=== PATIENT | male | born 1955 | race Caucasian/White ===

== ENCOUNTER 2016-12-05 08:38 | Inpatient (IN) | payer OTHER ==
[~2016-12-05] VITALS: Ht 165.1 cm; Wt 123.1 kg
[~2016-12-05 08:38] MED LIST: ALBU0.084 IN; ALBUAER17 INH; ALPR0.5T7 PO; ASCO500T11 PO; ASPI81CH44 PO; ATOR10TA52 PO; BUPR-60 PO; CALC600T38 PO; CHOL20007 OR; CYAN100023 PO; FERR325T50 PO; FLUT50SP13; Gabapentin PO; IPRASOL39 IN; LEVO150T68 PO; MAGN400T5 OR; MULTTAB OR; OXYC10TA44 PO; PANT40TA2 PO; PRI50T GT; RANI150C11 PO; SERT-138 PO; SUCR1TAB PO; TAM04C PO; TIOTCAP INH; TIZA4CAP5 PO; TRAZADONE PO
[2016-12-05] MEDS ORDERED: SODIUM CHLORIDE 0.9% 1,000 ML IV ONE (09:22)
[2016-12-05 09:24] LABS: Basophils # (auto) 0 uL; Eosinophils # (auto) 0.1 uL; Eosinophils % (auto) 0.8 % (0.0-7.0); Hematocrit 34.4 % (41.0-53.0); Hemoglobin 11.6 g/dL (13.5-17.5); Lymphocytes # (auto) 0.9 uL; Mean Corpuscular Hemoglobin 29.7 pg (28.0-32.0); Mean Corpuscular Hgb Conc. 33.7 g/dL (32.0-36.0); Mean Corpuscular Volume 88.1 fL (80.0-100.0); Mean Platelet Volume 8.1 fL (7.4-10.4); Monocytes # (auto) 0.2 uL; Monocytes % (auto) 1.9 % (0.0-12.0); Neutrophils # (auto) 11.1 uL; Neutrophils % (auto) 90.3 % (37.0-80.0); Platelet Count (auto) 227 10^3/uL (140-450); Red Cell Distribution Width 13.7 % (11.6-16.0); White Blood Cell 12.3 10^3/uL (4.4-10.8)
[2016-12-05] MEDS ORDERED: MORPHINE SULFATE 4 MG/ML SYRG IV ONE (09:30)
[2016-12-05 09:45] LABS: Lactic Acid w/Reflex 3.3 mmol/L (0.4-2.0)
[2016-12-05 09:47] LABS: Albumin 3.2 g/dL (3.4-5.0); Alkaline Phosphatase 63 U/L (45-117); Anion Gap 7 (5-15); Aspartate Aminotransferase 48 U/L (15-37); BUN/Creatinine Ratio 16.9; Bilirubin, Total 0.4 mg/dL (0.2-1.0); Blood Urea Nitrogen 15 mg/dL (7-18); Calcium 8.5 mg/dL (8.5-10.1); Carbon Dioxide 30 mmol/L (21-32); Chloride 104 mmol/L (98-107); GFR African American 111 mL/min; GFR Non-African American 92 mL/min; Glucose 100 mg/dL (74-106); Magnesium 1.9 mg/dL (1.6-2.6); Sodium 141 mmol/L (136-145); Total Protein 7.7 g/dL (6.4-8.2)
[2016-12-05 10:19] LABS: REFLEX LACTIC ACID YES OR NO YES
[2016-12-05 10:22] LABS: Urine RBC None Seen /hpf (0 - 3)
[2016-12-05 10:52] LABS: Urine Bilirubin Negative (Negative); Urine Blood Negative /uL (Negative); Urine Color Yellow (Yellow); Urine Glucose Normal (Normal); Urine Ketone Negative (Negative); Urine Nitrite Negative (Negative); Urine Squamous Epithelial Cell FEW /hpf (<5); Urine Urobilinogen Normal (Negative)
[2016-12-05] MEDS ORDERED: ACETAMINOPHEN 325 MG TAB PO ONE ×2 (11:34→11:45)
[2016-12-05] MEDS ORDERED: PIPERACILLIN-TAZOB 3.375GM 100 ML IV ONE ×2 (11:45→12:00)
[2016-12-05] MEDS ORDERED: SODIUM CHLORIDE 0.9% 1,000 ML IV SCH (11:56)
[2016-12-05 11:58] LABS: Lactic Acid w/Reflex 2.2 mmol/L (0.4-2.0); REFLEX LACTIC ACID YES OR NO NO
[2016-12-05] MEDS ORDERED: SODIUM BICARBONATE 8.4 % INJ 50ML VIAL IV ONE (12:00)
[2016-12-05] MEDS ORDERED: TEMAZEPAM 15 MG CAP PO PRN (12:00)
[2016-12-05] MEDS ORDERED: PROMETHAZINE HCL 25 MG/ML 1ML IV PRN (12:00)
[2016-12-05] MEDS ORDERED: ALBUTEROL SULF 2.5 MG/0.5ML(0.5%) NEB SOLN NEB ONE (12:00)
[2016-12-05] MEDS ORDERED: methylPREDNISolone SOD SUCC 40 MG/ML VL IV SCH (12:00)
[2016-12-05] MEDS ORDERED: FERROUS SULFATE 325 MG PO SCH (12:00)
[2016-12-05] MEDS ORDERED: MORPHINE SULF INJ 2 MG/ML SYRINGE 1ML IV PRN (12:00)
[2016-12-05] MEDS ORDERED: HYDROcodone-ACET 5/325MG TAB PO PRN (12:00)
[2016-12-05] MEDS ORDERED: VANCOMYCIN PER PHARMACY 0 MG IV SCH (12:00)
[2016-12-05] MEDS ORDERED: LORazepam 0.5 MG TAB PO PRN (12:00)
[2016-12-05] MEDS ORDERED: CALCIUM CHL 100MG/ML 1,000 MG in D5W 5% 100 ML IV ONE (12:00)
[2016-12-05] MEDS ORDERED: NITROGLYCERIN 0.4 MG SL TAB SL PRN (12:00)
[2016-12-05] MEDS ORDERED: FUROSEMIDE 40 MG/4 ML VIAL IV ONE (12:00)
[2016-12-05] MEDS ORDERED: ALBUTEROL SULF 2.5 MG/0.5ML(0.5%) NEB SOLN NEB PRN (12:00)
[2016-12-05] MEDS ORDERED: LACTULOSE 20Gm/30ML SOLN PO PRN (12:00)
[2016-12-05] MEDS ORDERED: ACETAMINOPHEN 500 MG TAB PO PRN (12:00)
[2016-12-05] MEDS ORDERED: ALPRAZolam 0.5 MG TAB PO PRN (12:00)
[2016-12-05] MEDS ORDERED: OSELTAMIVIR 75 MG CAP PO ONE (12:00)
[2016-12-05] MEDS ORDERED: IPRATROPIUM BROM 0.5 MG/2.5ML INH SOL ONE (12:07)
[2016-12-05] MEDS ORDERED: SODIUM CHLORIDE 0.9% 500 ML IV ONE (12:15)
[2016-12-05] MEDS ORDERED: InsuLIN REG 1unit/0.01ml Soln (100units/ml) IV ONE (12:15)
[2016-12-05] MEDS ORDERED: DEXTROSE (50%) 50ML SYRG IV ONE ×2 (12:15→12:45)
[2016-12-05] MEDS ORDERED: FUROSEMIDE 20 MG/2 ML VIAL IV ONE (12:15)
[2016-12-05] MEDS ORDERED: SODIUM POLYSTYRENE SULF 15GM/60ML SUSP PO ONE (12:15)
[2016-12-05] MEDS ORDERED: AZITHROMYCIN 500MG/D5W 250ML 250 ML IV ONE (12:30)
[2016-12-05] MEDS ORDERED: DEXTROSE 50% SYRINGE 50 ML IV ONE (12:30)
[2016-12-05] MEDS: IPRATROPIUM BROM 0.5 MG/2.5ML INH SOL NEB SCH ×3 (12:32→23:22)
[2016-12-05] MEDS: ALBUTEROL SULF 2.5 MG/0.5ML(0.5%) NEB SOLN NEB SCH ×3 (12:32→23:23)
[2016-12-05] MEDS: ASPirin 81 mg TAB PO SCH (13:00)
[2016-12-05] MEDS: PANTOPRAZOLE 40 MG TAB PO SCH (13:26)
[2016-12-05] MEDS: SUCRALFATE 1 GM TAB PO SCH ×3 (13:49→21:13)
[2016-12-05] MEDS: CYANOCOBALAMIN 500 MCG TAB PO SCH (13:50)
[2016-12-05] MEDS: GABAPENTIN 300 MG CAP PO SCH ×2 (13:59→21:13)
[2016-12-05] MEDS: MORPHINE SULF INJ 2 MG/ML SYRINGE 1ML IV PRN ×2 (13:59→21:12)
[2016-12-05] MEDS ORDERED: VANCOMYCIN 1GM/250ML D5W 250 ML IV ONE (14:00)
[2016-12-05] MEDS ORDERED: TIZANIDINE HYDROCHLORIDE PO SCH (14:00)
[2016-12-05 14:15] VITALS: BP 108/55
[2016-12-05] MEDS: VANCOMYCIN 1,250 MG in D5W 5% 250 ML IV SCH (15:05)
[2016-12-05 15:23] VITALS: BP 108/55
[2016-12-05] MEDS: ENOXAPARIN SOD 40 MG/0.4 ML SYRINGE SC SCH (15:27)
[2016-12-05 17:00] VITALS: BP 114/51
[2016-12-05 17:40] LABS: BUN/Creatinine Ratio 11.3; Calcium 8.7 mg/dL (8.5-10.1)
[2016-12-05] MEDS ORDERED: TRAZODONE 200 MG PO SCH (18:00)
[2016-12-05] MEDS ORDERED: ASCORBIC ACID 500 MG TAB PO SCH (18:00)
[2016-12-05] MEDS ORDERED: CYANOCOBALAMIN PO SCH (18:00)
[2016-12-05] MEDS: FERROUS SULFATE 325 MG TAB PO SCH (18:20)
[2016-12-05] MEDS: PIPERACILLIN-TAZOB 3.375GM 100 ML IV SCH ×2 (18:20→23:30)
[2016-12-05] MEDS: TAMSULOSIN HYDROCHLORIDE 0.4 MG CAP PO SCH (18:21)
[2016-12-05] MEDS: traZODone HCL 50 MG TAB PO SCH (18:21)
[2016-12-05 20:30] VITALS: BP 124/72
[2016-12-05 21:10] VITALS: BP 124/72
[2016-12-05] MEDS: PRIMIDONE 50 MG TAB PO SCH (21:13)
[2016-12-05] MEDS: buPROPion HCL 75 MG TAB PO SCH (21:13)
[2016-12-05] MEDS: FAMOTIDINE 20 MG TAB PO SCH (21:14)
[2016-12-05] MEDS ORDERED: ATORVASTATIN 20 MG TAB PO SCH (22:00)
[2016-12-05] MEDS ORDERED: PATIENTS OWN MEDICATION (Ranitidine Hcl 1 CAP) PO SCH ×2 (22:00)
[2016-12-05] MEDS ORDERED: OSELTAMIVIR 75 MG CAP PO SCH (22:00)
[2016-12-06] VITALS (8 sets, daily range): BP systolic 112–137; BP diastolic 47–95
[2016-12-06] MEDS: MORPHINE SULF INJ 2 MG/ML SYRINGE 1ML IV PRN ×3 (02:02→10:45)
[2016-12-06] MEDS: VANCOMYCIN 1,250 MG in D5W 5% 250 ML IV SCH ×2 (03:25→15:37)
[2016-12-06] MEDS: PIPERACILLIN-TAZOB 3.375GM 100 ML IV SCH ×3 (06:11→18:00)
[2016-12-06 06:12] LABS: Basophils # (auto) 0 uL; Eosinophils # (auto) 0 uL; Eosinophils % (auto) 0.1 % (0.0-7.0); Hematocrit 30.8 % (41.0-53.0); Hemoglobin 10.3 g/dL (13.5-17.5); Lymphocytes # (auto) 1.1 uL; Lymphocytes % (auto) 7.8 % (10.0-50.0); Mean Corpuscular Hemoglobin 30.2 pg (28.0-32.0); Mean Corpuscular Hgb Conc. 33.6 g/dL (32.0-36.0); Mean Corpuscular Volume 89.8 fL (80.0-100.0); Mean Platelet Volume 8.7 fL (7.4-10.4); Monocytes # (auto) 0.3 uL; Monocytes % (auto) 2.2 % (0.0-12.0); Neutrophils # (auto) 13.2 uL; Neutrophils % (auto) 89.9 % (37.0-80.0); Platelet Count (auto) 210 10^3/uL (140-450); Red Cell Distribution Width 13.5 % (11.6-16.0); White Blood Cell 14.6 10^3/uL (4.4-10.8)
[2016-12-06] MEDS: GABAPENTIN 300 MG CAP PO SCH ×2 (06:12→14:03)
[2016-12-06] MEDS: SUCRALFATE 1 GM TAB PO SCH ×2 (06:12→12:53)
[2016-12-06 06:42] LABS: Albumin 2.9 g/dL (3.4-5.0); BUN/Creatinine Ratio 12.2; Bilirubin, Total 0.5 mg/dL (0.2-1.0); Calcium 8.7 mg/dL (8.5-10.1); Total Protein 6.9 g/dL (6.4-8.2)
[2016-12-06 06:53] LABS: Potassium 2.9 mmol/L (3.5-5.1)
[2016-12-06] MEDS: IPRATROPIUM BROM 0.5 MG/2.5ML INH SOL NEB SCH ×3 (07:15→17:48)
[2016-12-06] MEDS: ALBUTEROL SULF 2.5 MG/0.5ML(0.5%) NEB SOLN NEB SCH ×3 (07:15→17:48)
[2016-12-06] MEDS: FERROUS SULFATE 325 MG TAB PO SCH ×3 (08:22→18:00)
[2016-12-06] MEDS ORDERED: CALCIUM W/VIT D (600MG/400IU) TAB PO SCH (10:00)
[2016-12-06] MEDS: ASPirin 81 mg TAB PO SCH (10:00)
[2016-12-06] MEDS ORDERED: FLUTICASONE PROP NASAL SPR 0.05 % (50MCG) 16GM SCH (10:00)
[2016-12-06] MEDS ORDERED: LEVOTHYROXINE SODIUM 50 MCG TAB PO SCH (10:00)
[2016-12-06] MEDS ORDERED: LEVOTHYROXINE SODIUM 100 MCG TAB PO SCH (10:00)
[2016-12-06] MEDS ORDERED: MAGNESIUM OXIDE 400 MG TAB PO SCH (10:00)
[2016-12-06] MEDS ORDERED: CALCIUM 600 MG PO SCH (10:00)
[2016-12-06] MEDS ORDERED: CHOLECALCIFEROL (VITD3) 1,000 UNIT TAB PO SCH (10:00)
[2016-12-06] MEDS ORDERED: PATIENTS OWN MEDICATION (Levothyroxine Sodium (Synthroid) 1 TAB) PO SCH (10:00)
[2016-12-06] MEDS ORDERED: PATIENTS OWN MEDICATION (Magnesium Oxide 400 MG) OR SCH (10:00)
[2016-12-06] MEDS ORDERED: SERTRALINE HCL 50 MG TAB PO SCH (10:00)
[2016-12-06] MEDS ORDERED: AZITHROMYCIN 500MG/D5W 250ML 250 ML IV SCH (10:00)
[2016-12-06] MEDS: ENOXAPARIN SOD 40 MG/0.4 ML SYRINGE SC SCH (10:02)
[2016-12-06] MEDS: buPROPion HCL 75 MG TAB PO SCH (10:02)
[2016-12-06] MEDS: PRIMIDONE 50 MG TAB PO SCH (10:02)
[2016-12-06] MEDS: PANTOPRAZOLE 40 MG TAB PO SCH (10:03)
[2016-12-06] MEDS: FAMOTIDINE 20 MG TAB PO SCH (10:03)
[2016-12-06] MEDS: CYANOCOBALAMIN 500 MCG TAB PO SCH (10:04)
[2016-12-06] MEDS: TAMSULOSIN HYDROCHLORIDE 0.4 MG CAP PO SCH (18:00)
[2016-12-06] MEDS: traZODone HCL 50 MG TAB PO SCH (18:00)
[2016-12-06] MEDS ORDERED: BUDESONIDE (INHALATION) 0.5 MG/2 ML NEB NEB SCH (22:00)
== END 2016-12-06 19:02 | disposition short-term general hospital (02) | DRG 871 ==
LOC: EDBD 08:38 → ER 08:38 → TELE 08:39 → TELE-CENTR 14:38
PROVIDERS: ADMIT Internal Medicine; ATTEND Internal Medicine Geriatric Medicine
DX: A41.9 Sepsis, unspecified organism (principal); J18.9 Pneumonia, unspecified organism; J96.00 Acute respiratory failure, unspecified whether with hypoxia or hypercapnia; J44.1 Chronic obstructive pulmonary disease with (acute) exacerbation; J45.909 Unspecified asthma, uncomplicated; E87.5 Hyperkalemia; F41.9 Anxiety disorder, unspecified; E03.9 Hypothyroidism, unspecified; D63.8 Anemia in other chronic diseases classified elsewhere; K21.9 Gastro-esophageal reflux disease without esophagitis; M10.9 Gout, unspecified
CPT/HCPCS: 36415; 36600; 71010; 80048; 80053; 80061; 81001; 82805; 82962; 83605; 83735; 84443; 84484; 85025; 87040; 87081; 87400; 93005; 94640; 96374; 96375; J1815; J2543; J7060

== ENCOUNTER 2018-02-05 08:04 | Inpatient (IN) | payer OTHER ==
[~2018-02-05] VITALS: Ht 175.3 cm; Wt 92.6 kg
[~2018-02-05 08:04] MED LIST changes: +ASPI1CHW15 PO; -ASPI81CH44 PO; +TIZA4CAP PO; -TIZA4CAP5 PO
[2018-02-05] MEDS ORDERED: SODIUM CHLORIDE 0.9% 1,000 ML IV ONE (08:07)
[2018-02-05] MEDS ORDERED: methylPREDNISolone SOD SUCC 125 MG/2 ML VL IV ONE ×2 (08:15→08:30)
[2018-02-05 08:16] VITALS: BP 195/81
[2018-02-05] MEDS ORDERED: ACETAMINOPHEN 500 MG TAB PO ONE (09:00)
[2018-02-05] MEDS ORDERED: cefTRIAXone 1GM/10ml IVPUSH 10 ML IV ONE (09:00)
[2018-02-05 09:38] LABS: Basophils # (auto) 0 uL; Basophils % (auto) 0.3 % (0.0-2.0); Eosinophils # (auto) 0 uL; Eosinophils % (auto) 0.5 % (0.0-7.0); Hematocrit 34.9 % (41.0-53.0); Hemoglobin 11.7 g/dL (13.5-17.5); Lymphocytes # (auto) 0.4 uL; Lymphocytes % (auto) 11.7 % (10.0-50.0); Mean Corpuscular Hemoglobin 31.9 pg (28.0-32.0); Mean Corpuscular Hgb Conc. 33.6 g/dL (32.0-36.0); Mean Corpuscular Volume 94.9 fL (80.0-100.0); Monocytes # (auto) 0.2 uL; Monocytes % (auto) 5.9 % (0.0-12.0); Neutrophils # (auto) 2.7 uL; Neutrophils % (auto) 81.6 % (37.0-80.0); Nucleated Red Blood Cells % 0.1 %; Platelet Count (auto) 178 10^3/uL (140-450); Red Blood Cells 3.68 10^6/uL (4.5-5.90); Red Cell Distribution Width 13.9 % (11.8-14.3); White Blood Cell 3.4 10^3/uL (4.4-10.8)
[2018-02-05 09:58] LABS: Alanine Aminotransferase 30 U/L (16-61); Albumin 3.7 g/dL (3.4-5.0); Alkaline Phosphatase 55 U/L (45-117); Anion Gap 8 (5-15); Aspartate Aminotransferase 36 U/L (15-37); BUN/Creatinine Ratio 16.2; Bilirubin, Total 0.4 mg/dL (0.2-1.0); Blood Urea Nitrogen 17 mg/dL (7-18); Calcium 8.4 mg/dL (8.5-10.1); Carbon Dioxide 27 mmol/L (21-32); Chloride 106 mmol/L (98-107); GFR African American 91 mL/min; GFR Non-African American 76 mL/min; Glucose 130 mg/dL (74-106); Magnesium 2.4 mg/dL (1.6-2.6); Potassium 4.2 mmol/L (3.5-5.1); Sodium 141 mmol/L (136-145); Total Protein 7.4 g/dL (6.4-8.2)
[2018-02-05 11:14] LABS: Urine Bacteria NONE SEEN /hpf (None Seen); Urine Blood Negative /uL (Negative); Urine WBC 1 /hpf (0 - 3)
[2018-02-05] MEDS ORDERED: MORPHINE SULFATE 8mg/ml INJ SDV IV ONE (13:45)
[2018-02-05] MEDS ORDERED: ONDANSETRON HCL 4 MG/2 ML VIAL IV ONE (14:00)
[2018-02-05] MEDS: SODIUM CHLORIDE 0.9% 1,000 ML IV SCH (15:17)
[2018-02-05] MEDS ORDERED: LACTULOSE 20Gm/30ML SOLN PO PRN (15:30)
[2018-02-05] MEDS ORDERED: LORazepam 0.5 MG TAB PO PRN (15:30)
[2018-02-05] MEDS ORDERED: TEMAZEPAM 15 MG CAP PO PRN (15:30)
[2018-02-05] MEDS ORDERED: HYDROcodone-ACET 5/325MG TAB PO PRN (15:30)
[2018-02-05] MEDS ORDERED: ALPRAZolam 0.5 MG TAB PO PRN (15:30)
[2018-02-05] MEDS ORDERED: NITROGLYCERIN 0.4 MG SL TAB SL PRN (15:30)
[2018-02-05] MEDS ORDERED: MORPHINE SULFATE 10 MG/ML INJ 1ML SDV IV PRN (15:30)
[2018-02-05] MEDS ORDERED: ALBUTEROL SULF 2.5 MG/0.5ML(0.5%) NEB SOLN NEB PRN (15:30)
[2018-02-05] MEDS ORDERED: ACETAMINOPHEN 500 MG TAB PO PRN (15:30)
[2018-02-05] MEDS ORDERED: DEXTROSE (50%) 50ML SYRG IV PRN (15:30)
[2018-02-05 15:38] VITALS: BP 162/77
[2018-02-05] MEDS ORDERED: PANTOPRAZOLE 40 MG/10 ML VIAL IV ONE (15:45)
[2018-02-05 16:25] LABS: Amylase 36 U/L (25-115); Lipase 76 U/L (73-393)
[2018-02-05] MEDS ORDERED: OXYCODONE W/ ACETAMINOPHEN 5/325MG TABLET PO PRN (16:30)
[2018-02-05] MEDS: InsuLIN REG 1unit/0.01ml Soln (100units/ml) SC SCH ×2 (17:00→22:43)
[2018-02-05] MEDS: CALCIUM W/VIT D (600MG/400IU) TAB PO SCH (17:15)
[2018-02-05] MEDS: SUCRALFATE 1 GM TAB PO SCH ×2 (17:15→22:41)
[2018-02-05] MEDS: ACCU-CHEK COMFORT CURVE STRIP VI SCH ×2 (17:21→22:29)
[2018-02-05] MEDS ORDERED: CYANOCOBALAMIN 500 MCG TAB PO SCH (18:00)
[2018-02-05] MEDS ORDERED: methylPREDNISolone SOD SUCC 40 MG/ML VL IV SCH (18:00)
[2018-02-05] MEDS: ASCORBIC ACID 500 MG TAB PO SCH (18:12)
[2018-02-05] MEDS: FERROUS SULFATE 325 MG TAB PO SCH (18:13)
[2018-02-05] MEDS: CYANOCOBALAMIN 500 MCG TAB PO SCH (18:24)
[2018-02-05] MEDS: IPRATROPIUM BROM 0.5 MG/2.5ML INH SOL NEB SCH (18:51)
[2018-02-05] MEDS: ALBUTEROL SULF 2.5 MG/0.5ML(0.5%) NEB SOLN NEB SCH (18:51)
[2018-02-05 21:05] LABS: Hematocrit 35.1 % (41.0-53.0); Hemoglobin 11.7 g/dL (13.5-17.5)
[2018-02-05] MEDS ORDERED: PATIENTS OWN MEDICATION (Ranitidine Hcl 1 CAP) PO SCH (22:00)
[2018-02-05] MEDS: TIZANIDINE 4 MG PO SCH (22:00)
[2018-02-05] MEDS: TAMSULOSIN HYDROCHLORIDE 0.4 MG CAP PO SCH (22:41)
[2018-02-05] MEDS: buPROPion HCL 75 MG TAB PO SCH (22:41)
[2018-02-05] MEDS: GABAPENTIN 300 MG CAP PO SCH (22:41)
[2018-02-05] MEDS: ATORVASTATIN 20 MG TAB PO SCH (22:41)
[2018-02-05] MEDS: traZODone HCL 50 MG TAB PO SCH (22:41)
[2018-02-05] MEDS: MORPHINE SULFATE 10 MG/ML INJ 1ML SDV IV PRN (22:42)
[2018-02-05] MEDS: PROMETHAZINE HCL 25 MG/ML 1ML IV PRN (22:43)
[2018-02-05] MEDS: PANTOPRAZOLE 40 MG/10 ML VIAL IV SCH (23:58)
[2018-02-05] MEDS: CLINDAMYCIN 600MG IV 50 ML IV SCH (23:58)
[2018-02-05] MEDS: PRIMIDONE 50 MG TAB PO SCH (23:59)
[2018-02-05] MEDS: methylPREDNISolone SOD SUCC 40 MG/ML VL IV SCH (23:59)
[2018-02-06] MEDS: ALBUTEROL SULF 2.5 MG/0.5ML(0.5%) NEB SOLN NEB SCH ×4 (00:48→19:53)
[2018-02-06] MEDS: IPRATROPIUM BROM 0.5 MG/2.5ML INH SOL NEB SCH ×4 (00:48→19:53)
[2018-02-06 01:01] LABS: Hematocrit 34.1 % (41.0-53.0); Hemoglobin 11.6 g/dL (13.5-17.5)
[2018-02-06] MEDS: MORPHINE SULFATE 10 MG/ML INJ 1ML SDV IV PRN ×4 (03:42→20:56)
[2018-02-06] MEDS: PROMETHAZINE HCL 25 MG/ML 1ML IV PRN ×3 (03:42→20:57)
[2018-02-06] MEDS: SODIUM CHLORIDE 0.9% 1,000 ML IV SCH ×2 (05:49→17:35)
[2018-02-06] MEDS: TIZANIDINE 4 MG PO SCH ×3 (06:00→22:00)
[2018-02-06] MEDS: GABAPENTIN 300 MG CAP PO SCH ×3 (06:22→22:49)
[2018-02-06] MEDS: CLINDAMYCIN 600MG IV 50 ML IV SCH ×3 (06:22→22:38)
[2018-02-06] MEDS: InsuLIN REG 1unit/0.01ml Soln (100units/ml) SC SCH ×4 (07:00→22:00)
[2018-02-06] MEDS: ACCU-CHEK COMFORT CURVE STRIP VI SCH ×3 (07:00→16:27)
[2018-02-06 07:07] LABS: Basophils # (auto) 0 uL; Basophils % (auto) 0.1 % (0.0-2.0); Eosinophils # (auto) 0 uL; Eosinophils % (auto) 0.1 % (0.0-7.0); Hemoglobin 10.9 g/dL (13.5-17.5); Lymphocytes # (auto) 0.9 uL; Lymphocytes % (auto) 14.3 % (10.0-50.0); Mean Corpuscular Hemoglobin 32.3 pg (28.0-32.0); Monocytes # (auto) 0.4 uL; Monocytes % (auto) 6.4 % (0.0-12.0); Neutrophils # (auto) 5.1 uL; Neutrophils % (auto) 79.1 % (37.0-80.0); Platelet Count (auto) 166 10^3/uL (140-450); Red Blood Cells 3.37 10^6/uL (4.5-5.90); Red Cell Distribution Width 13.9 % (11.8-14.3); White Blood Cell 6.4 10^3/uL (4.4-10.8)
[2018-02-06 07:26] LABS: Cholesterol 109 mg/dL (< 200); HDL Cholesterol 58 mg/dL (40-59); LDL Cholesterol 36 mg/dL (< 100); Triglycerides 103 mg/dL (< 150)
[2018-02-06] MEDS: FERROUS SULFATE 325 MG TAB PO SCH ×3 (07:42→17:45)
[2018-02-06] MEDS: LEVOTHYROXINE SODIUM 50 MCG TAB PO SCH (07:42)
[2018-02-06] MEDS: SUCRALFATE 1 GM TAB PO SCH ×4 (07:42→22:50)
[2018-02-06 09:20] VITALS: BP 140/60
[2018-02-06 10:00] VITALS: BP 140/60
[2018-02-06] MEDS ORDERED: ENOXAPARIN SOD 40 MG/0.4 ML SYRINGE SC SCH (10:00)
[2018-02-06] MEDS ORDERED: PANTOPRAZOLE 40 MG TAB PO SCH ×2 (10:00)
[2018-02-06] MEDS: LEVOFLOXACIN 500MG 100 ML IV SCH (10:59)
[2018-02-06] MEDS: PANTOPRAZOLE 40 MG/10 ML VIAL IV SCH ×2 (11:00→22:47)
[2018-02-06] MEDS: methylPREDNISolone SOD SUCC 40 MG/ML VL IV SCH ×2 (11:00→22:47)
[2018-02-06] MEDS: buPROPion HCL 75 MG TAB PO SCH ×2 (11:02→22:50)
[2018-02-06] MEDS: SERTRALINE HCL 50 MG TAB PO SCH (11:02)
[2018-02-06] MEDS: CALCIUM W/VIT D (600MG/400IU) TAB PO SCH (11:02)
[2018-02-06] MEDS: ASPirin 81 mg TAB PO SCH (11:02)
[2018-02-06] MEDS: CHOLECALCIFEROL (VITD3) 1,000 UNIT TAB PO SCH (11:03)
[2018-02-06] MEDS: MAGNESIUM OXIDE 400 MG TAB PO SCH (11:03)
[2018-02-06] MEDS: PRIMIDONE 50 MG TAB PO SCH ×2 (11:23→22:51)
[2018-02-06] MEDS: FLUTICASONE PROP NASAL SPR 0.05 % (50MCG) 16GM SCH ×2 (11:23→22:52)
[2018-02-06 13:00] VITALS: BP 155/71
[2018-02-06 17:00] VITALS: BP 141/71
[2018-02-06] MEDS: CYANOCOBALAMIN 500 MCG TAB PO SCH (17:45)
[2018-02-06] MEDS: ASCORBIC ACID 500 MG TAB PO SCH (17:45)
[2018-02-06 22:00] VITALS: BP 155/70
[2018-02-06] MEDS: ATORVASTATIN 20 MG TAB PO SCH (22:49)
[2018-02-06] MEDS: TAMSULOSIN HYDROCHLORIDE 0.4 MG CAP PO SCH (22:49)
[2018-02-06] MEDS: traZODone HCL 50 MG TAB PO SCH (22:52)
[2018-02-07] MEDS: ALBUTEROL SULF 2.5 MG/0.5ML(0.5%) NEB SOLN NEB SCH ×2 (01:08→06:32)
[2018-02-07] MEDS: IPRATROPIUM BROM 0.5 MG/2.5ML INH SOL NEB SCH ×2 (01:08→06:32)
[2018-02-07] MEDS: MORPHINE SULFATE 10 MG/ML INJ 1ML SDV IV PRN ×4 (01:14→14:39)
[2018-02-07] MEDS: PROMETHAZINE HCL 25 MG/ML 1ML IV PRN ×2 (01:14→06:01)
[2018-02-07] MEDS: TIZANIDINE 4 MG PO SCH ×2 (03:26→14:00)
[2018-02-07] MEDS: ACCU-CHEK COMFORT CURVE STRIP VI SCH ×3 (03:29→11:17)
[2018-02-07 05:00] VITALS: BP 154/76
[2018-02-07] MEDS: CLINDAMYCIN 600MG IV 50 ML IV SCH ×2 (06:01→14:06)
[2018-02-07] MEDS: SUCRALFATE 1 GM TAB PO SCH ×2 (06:02→11:17)
[2018-02-07] MEDS: GABAPENTIN 300 MG CAP PO SCH ×2 (06:02→14:06)
[2018-02-07] MEDS: LEVOTHYROXINE SODIUM 50 MCG TAB PO SCH (06:03)
[2018-02-07 06:08] LABS: Basophils # (auto) 0 uL; Basophils % (auto) 0.1 % (0.0-2.0); Eosinophils # (auto) 0 uL; Eosinophils % (auto) 0.2 % (0.0-7.0); Hematocrit 30.6 % (41.0-53.0); Hemoglobin 10.6 g/dL (13.5-17.5); Lymphocytes % (auto) 16.5 % (10.0-50.0); Mean Corpuscular Hemoglobin 32.4 pg (28.0-32.0); Mean Corpuscular Hgb Conc. 34.5 g/dL (32.0-36.0); Mean Corpuscular Volume 93.7 fL (80.0-100.0); Monocytes # (auto) 0.4 uL; Monocytes % (auto) 6.7 % (0.0-12.0); Neutrophils # (auto) 4.6 uL; Neutrophils % (auto) 76.5 % (37.0-80.0); Platelet Count (auto) 181 10^3/uL (140-450); Red Blood Cells 3.26 10^6/uL (4.5-5.90); Red Cell Distribution Width 13.8 % (11.8-14.3)
[2018-02-07 06:18] LABS: INR 1.18 (0.9-1.15); Partial Thromboplastin Time 38.2 sec (23.78-33.04); Prothrombin Time 12.5 sec (9.27-12.13)
[2018-02-07 06:20] LABS: BUN/Creatinine Ratio 13.9; Calcium 8.7 mg/dL (8.5-10.1); Magnesium 2.3 mg/dL (1.6-2.6); Potassium 3.9 mmol/L (3.5-5.1)
[2018-02-07] MEDS: InsuLIN REG 1unit/0.01ml Soln (100units/ml) SC SCH ×2 (07:00→11:30)
[2018-02-07] MEDS: SODIUM CHLORIDE 0.9% 1,000 ML IV SCH (07:13)
[2018-02-07] MEDS: FERROUS SULFATE 325 MG TAB PO SCH ×2 (07:49→11:16)
[2018-02-07 08:00] VITALS: BP 145/71
[2018-02-07] MEDS: ASPirin 81 mg TAB PO SCH (10:00)
[2018-02-07] MEDS: LEVOFLOXACIN 500MG 100 ML IV SCH (10:29)
[2018-02-07] MEDS: methylPREDNISolone SOD SUCC 40 MG/ML VL IV SCH (10:29)
[2018-02-07] MEDS: PANTOPRAZOLE 40 MG/10 ML VIAL IV SCH (10:29)
[2018-02-07] MEDS: CHOLECALCIFEROL (VITD3) 1,000 UNIT TAB PO SCH (10:30)
[2018-02-07] MEDS: SERTRALINE HCL 50 MG TAB PO SCH (10:30)
[2018-02-07] MEDS: CALCIUM W/VIT D (600MG/400IU) TAB PO SCH (10:30)
[2018-02-07] MEDS: MAGNESIUM OXIDE 400 MG TAB PO SCH (10:30)
[2018-02-07] MEDS: buPROPion HCL 75 MG TAB PO SCH (10:31)
[2018-02-07] MEDS: PRIMIDONE 50 MG TAB PO SCH (10:32)
[2018-02-07 12:00] VITALS: BP 137/63
[2018-02-07] MEDS ORDERED: ACETYLCYSTEINE 10 %(100MG/ML) SOL 4ML NEB SCH (12:00)
[2018-02-07] MEDS ORDERED: BUDESONIDE (INHALATION) 0.5 MG/2 ML NEB NEB SCH (12:00)
== END 2018-02-07 16:35 | disposition home or self-care (01) | DRG 871 ==
LOC: EDBD 08:04 → ER 08:04 → TELE 08:05 → EAST 02-06 09:16
PROVIDERS: ADMIT Internal Medicine; ATTEND Internal Medicine Geriatric Medicine
PROC: 5A09357 Assistance with Respiratory Ventilation, Less than 24 Consecutive Hours, Continuous Positive Airway Pressure (ICD-10-PCS; principal; 2018-02-05)
DX: A41.9 Sepsis, unspecified organism (principal); J18.1 Lobar pneumonia, unspecified organism; J96.10 Chronic respiratory failure, unspecified whether with hypoxia or hypercapnia; I11.0 Hypertensive heart disease with heart failure; K27.4 Chronic or unspecified peptic ulcer, site unspecified, with hemorrhage; I50.30 Unspecified diastolic (congestive) heart failure; J44.0 Chronic obstructive pulmonary disease with (acute) lower respiratory infection; J44.1 Chronic obstructive pulmonary disease with (acute) exacerbation; E03.9 Hypothyroidism, unspecified; F32.9 Major depressive disorder, single episode, unspecified; F41.9 Anxiety disorder, unspecified; K21.9 Gastro-esophageal reflux disease without esophagitis; M10.9 Gout, unspecified; N40.0 Benign prostatic hyperplasia without lower urinary tract symptoms; E66.9 Obesity, unspecified; Z80.8 Family history of malignant neoplasm of other organs or systems; Z83.3 Family history of diabetes mellitus; Z87.11 Personal history of peptic ulcer disease; Z90.49 Acquired absence of other specified parts of digestive tract; Z68.30 Body mass index [BMI] 30.0-30.9, adult
CPT/HCPCS: 36415; 36600; 71045; 80048; 80053; 80061; 81001; 82150; 82805; 82962; 83036; 83690; 83735; 83880; 84443; 84484; 85014; 85018; 85025; 85045; 85610; 85730; 86850; 86870; 86900; 86901; 87040; 87070; 87081; 87205; 93005; 94640; 94660; 96361; 96374; 96375; C9113; J1815; J1956; J2270; J2405; J3490

== ENCOUNTER 2021-12-26 23:44 | Inpatient (IN) | payer OTHER ==
[~2021-12-26] VITALS: Ht 172.7 cm; Wt 65.5 kg
[~2021-12-26 23:44] MED LIST changes: +CALC600T16 PO; -CALC600T38 PO; +LEV150T PO; -LEVO150T68 PO; +MAGN400T40 OR; -MAGN400T5 OR; +MULT-733 OR; -MULTTAB OR; -PRI50T GT; +PRIM50TA5 GT; -SERT-138 PO; +SERT50TA PO
[2021-12-26 23:51] VITALS: BP 202/97
[2021-12-27] VITALS (8 sets, daily range): BP systolic 81–152; BP diastolic 52–74
[2021-12-27] MEDS ORDERED: ALBUTEROL SULF 2.5 MG/0.5ML(0.5%) NEB SOLN HHN ONE
[2021-12-27] MEDS ORDERED: DexAMETHasone SOD PHOS 10MG/1ML VIAL INJ IM ONE
[2021-12-27] MEDS ORDERED: IPRATROPIUM BROM 0.5 MG/2.5ML INH SOL HHN ONE
[2021-12-27] MEDS ORDERED: AZITHROMYCIN 500MG/ 250ML 250 ML IV ONE
[2021-12-27] MEDS ORDERED: LABETALOL HCL 5 MG/ML 4ML SYRINGE IV ONE (00:30)
[2021-12-27 01:11] LABS: Eosinophils # (auto) 0 10 ^3/uL (0-0.8); Hemoglobin 10.5 g/dL (13.5-17.5)
[2021-12-27 01:13] LABS: Basophils # (auto) 0 10 ^3/uL (0-0.2); Basophils % (auto) 0.5 % (0.0-2.0); Eosinophils % (auto) 0.6 % (0.0-7.0); Hematocrit 30.5 % (41.0-53.0); Lymphocytes # (auto) 1.4 10 ^3/uL (0.4-5.4); Lymphocytes % (auto) 17.9 % (10.0-50.0); Mean Corpuscular Hemoglobin 34.9 pg (28.0-32.0); Mean Corpuscular Hgb Conc. 34.3 g/dL (32.0-36.0); Mean Corpuscular Volume 101.8 fL (80.0-100.0); Monocytes # (auto) 0.3 10 ^3/uL (0-1.3); Monocytes % (auto) 4.4 % (0.0-12.0); Neutrophils % (auto) 76.6 % (37.0-80.0); Red Cell Distribution Width 19.7 % (11.8-14.3); White Blood Cell 7.8 10^3/uL (4.4-10.8)
[2021-12-27] MEDS ORDERED: SODIUM CHLORIDE 0.9% 1,000 ML IV ONE (01:15)
[2021-12-27 01:23] LABS: Lactic Acid w/Reflex 2.4 mmol/L (0.4-2.0)
[2021-12-27 01:29] LABS: Albumin 3.7 g/dL (3.4-5.0); BUN/Creatinine Ratio 10.8; Calcium 9.2 mg/dL (8.5-10.1); Potassium 4.8 mmol/L (3.5-5.1)
[2021-12-27 01:32] LABS: Bilirubin, Total 0.6 mg/dL (0.2-1.0)
[2021-12-27] MEDS ORDERED: VANCOMYCIN 1GM/250ML 250 ML IV ONE (03:15)
[2021-12-27] MEDS ORDERED: IOHEXOL 350 MG/ML 100ML IJ ONE (03:35)
[2021-12-27] MEDS ORDERED: ALBUTEROL SULF 2.5 MG/0.5ML(0.5%) NEB SOLN NEB ONE (04:15)
[2021-12-27] MEDS ORDERED: IPRATROPIUM BROM 0.5 MG/2.5ML INH SOL NEB ONE (04:15)
[2021-12-27] MEDS ORDERED: ASPirin 81 mg TAB PO ONE (06:00)
[2021-12-27] MEDS ORDERED: HEPARIN DRIP/D5W 100UNITS/ML 250 ML IV SCH ×3 (06:00→15:15)
[2021-12-27] MEDS ORDERED: CLOPIDOGREL 300 MG TAB PO ONE (06:00)
[2021-12-27] MEDS: ALBUTEROL SULF 2.5 MG/0.5ML(0.5%) NEB SOLN NEB SCH ×2 (06:22→13:10)
[2021-12-27] MEDS: IPRATROPIUM BROM 0.5 MG/2.5ML INH SOL NEB SCH ×4 (06:22→21:07)
[2021-12-27] MEDS ORDERED: HEPARIN SODIUM (PORCINE) 5000 UNITS/ML 1ML VIAL IV ONE ×2 (06:30)
[2021-12-27 07:54] LABS: INR 1.13 (0.9-1.15); Partial Thromboplastin Time 33.3 sec (23.6-33.0)
[2021-12-27] MEDS ORDERED: MORPHINE SULFATE INJECTION 2 MG/ML SYRG IV PRN (10:45)
[2021-12-27] MEDS ORDERED: NITROGLYCERIN 0.4 MG SL TAB SL PRN (10:45)
[2021-12-27] MEDS ORDERED: hydrALAZINE HCL 20 MG/ML VL IV PRN (14:45)
[2021-12-27] MEDS ORDERED: methylPREDNISolone SOD SUCC 125 MG/2 ML VL IV ONE (14:45)
[2021-12-27] MEDS ORDERED: DOCUSATE SOD 100 MG CAP PO PRN (14:45)
[2021-12-27] MEDS ORDERED: ACETAMINOPHEN 325 MG TAB PO PRN (14:45)
[2021-12-27] MEDS ORDERED: levoFLOXacin 750MG 150 ML IV ONE (14:45)
[2021-12-27] MEDS ORDERED: ONDANSETRON HCL 4 MG/2 ML VIAL IV PRN (14:45)
[2021-12-27 15:31] LABS: Magnesium 1.9 mg/dL (1.6-2.6); Phosphorus 3.3 mg/dL (2.5-4.90)
[2021-12-27 15:49] LABS: INR 1.17 (0.9-1.15)
[2021-12-27] MEDS: MORPHINE SULFATE INJECTION 2 MG/ML SYRG IV PRN ×2 (16:28→22:46)
[2021-12-27] MEDS: FUROSEMIDE 20 MG/2 ML VIAL IV SCH (18:20)
[2021-12-27] MEDS: HYDROcodone-ACET 5/325MG TAB PO PRN (18:30)
[2021-12-27] MEDS: BUDESONIDE (INHALATION) 0.5 MG/2 ML NEB NEB SCH ×2 (18:54→21:07)
[2021-12-27] MEDS: ALBUTEROL SULF 2.5 MG/0.5ML(0.5%) NEB SOLN NEB PRN ×2 (18:54→21:07)
[2021-12-27] MEDS: ACETYLCYSTEINE 10 %(100MG/ML) SOL 4ML NEB SCH (21:07)
[2021-12-27] MEDS: TAMSULOSIN HYDROCHLORIDE 0.4 MG CAP PO SCH (21:37)
[2021-12-27] MEDS: methylPREDNISolone SOD SUCC 40 MG/ML VL IV SCH (21:37)
[2021-12-27] MEDS: ISOSORBIDE MONONITRATE 20 MG TAB PO SCH (21:38)
[2021-12-27] MEDS: POTASSIUM EFFERVESENT TAB 25 MEQ PO SCH (21:39)
[2021-12-27] MEDS: ATORVASTATIN 20 MG TAB PO SCH (21:39)
[2021-12-27] MEDS: PRIMIDONE 50 MG TAB PO SCH (21:39)
[2021-12-27] MEDS ORDERED: POTASSIUM CHL 20 Meq TABLET PO SCH (22:00)
[2021-12-27] MEDS: ALPRAZolam 0.5 MG TAB PO SCH (22:42)
[2021-12-28] MEDS: ALBUTEROL SULF 2.5 MG/0.5ML(0.5%) NEB SOLN NEB PRN ×6 (02:02→23:16)
[2021-12-28] MEDS: IPRATROPIUM BROM 0.5 MG/2.5ML INH SOL NEB SCH ×6 (02:02→22:44)
[2021-12-28] MEDS: HYDROcodone-ACET 5/325MG TAB PO PRN ×2 (02:20→07:59)
[2021-12-28 05:00] VITALS: BP 99/49
[2021-12-28] MEDS: MORPHINE SULFATE INJECTION 2 MG/ML SYRG IV PRN ×2 (05:03→11:09)
[2021-12-28 05:18] LABS: Basophils # (auto) 0 10 ^3/uL (0-0.2); Basophils % (auto) 0.1 % (0.0-2.0); Eosinophils # (auto) 0 10 ^3/uL (0-0.8); Eosinophils % (auto) 0.1 % (0.0-7.0); Hematocrit 24.7 % (41.0-53.0); Hemoglobin 8.9 g/dL (13.5-17.5); Lymphocytes # (auto) 0.2 10 ^3/uL (0.4-5.4); Lymphocytes % (auto) 3.8 % (10.0-50.0); Mean Corpuscular Hemoglobin 35.5 pg (28.0-32.0); Mean Corpuscular Hgb Conc. 35.8 g/dL (32.0-36.0); Monocytes # (auto) 0.2 10 ^3/uL (0-1.3); Neutrophils # (auto) 4.9 10 ^3/uL (1.6-8.6); Nucleated Red Blood Cells % 0.1 %; White Blood Cell 5.3 10^3/uL (4.4-10.8)
[2021-12-28 05:28] LABS: Chloride 101 mmol/L (98-107); Magnesium 1.6 mg/dL (1.6-2.6); Sodium 135 mmol/L (136-145)
[2021-12-28 05:39] LABS: Thyroid Stimulating Hormone 1.44 uIU/mL (0.358-3.74)
[2021-12-28 05:40] LABS: Alanine Aminotransferase 21 U/L (16-61); Albumin 2.7 g/dL (3.4-5.0); Alkaline Phosphatase 48 U/L (45-117); Anion Gap 4 (5-15); Aspartate Aminotransferase 24 U/L (15-37); Bilirubin, Total 0.4 mg/dL (0.2-1.0); Blood Urea Nitrogen 9 mg/dL (7-18); Calcium 9.1 mg/dL (8.5-10.1); Carbon Dioxide 30 mmol/L (21-32); Cholesterol 104 mg/dL (< 200); Creatine Kinase IFCC 57 U/L (39-308); GFR African American 213 mL/min; GFR Non-African American 176 mL/min; Glucose 122 mg/dL (74-106); HDL Cholesterol 67 mg/dL (40-59); LDL Cholesterol 24 mg/dL (< 100); Lipase 34 U/L (73-393); Phosphorus 3.2 mg/dL (2.5-4.90); Total Protein 6.5 g/dL (6.4-8.2); Triglycerides 50 mg/dL (< 150); Uric Acid 3.7 mg/dL (3.5-7.2)
[2021-12-28] MEDS: FUROSEMIDE 20 MG/2 ML VIAL IV SCH ×2 (05:43→17:17)
[2021-12-28 05:46] LABS: CRP High Sensitivity > 19 mg/dL (< 0.3)
[2021-12-28] MEDS: methylPREDNISolone SOD SUCC 40 MG/ML VL IV SCH ×3 (05:49→22:26)
[2021-12-28] MEDS: LEVOTHYROXINE SODIUM 50 MCG TAB PO SCH (05:50)
[2021-12-28 07:09] LABS: Alcohol, Urine < 3.0 mg/dL (0-10); Amphetamine Screen, Urine NEGATIVE (NEGATIVE); Barbiturate Scree,Urine POSITIVE (NEGATIVE); Benzodiazephine Screen, Urine NEGATIVE (NEGATIVE); Cannabinoid Screen, Urine NEGATIVE (NEGATIVE); Cocaine Screen, Urine NEGATIVE (NEGATIVE); Phencyclidine Screen, Urine NEGATIVE (NEGATIVE); Protein, Urine 16.5 mg/dL (0.0-11.9); Urine Bacteria NONE SEEN /hpf (None Seen); Urine Blood Negative /uL (Negative); Urine Specific Gravity 1.015 (1.001-1.035); Urine WBC <1 /hpf (0 - 3)
[2021-12-28 07:11] LABS: Opiate Scree,Urine POSITIVE (NEGATIVE)
[2021-12-28] MEDS: BUDESONIDE (INHALATION) 0.5 MG/2 ML NEB NEB SCH ×2 (07:35→19:09)
[2021-12-28] MEDS: ACETYLCYSTEINE 10 %(100MG/ML) SOL 4ML NEB SCH ×3 (07:35→22:44)
[2021-12-28 09:39] VITALS: BP 124/64
[2021-12-28] MEDS: levoFLOXacin 750MG 150 ML IV SCH (09:51)
[2021-12-28] MEDS: POTASSIUM EFFERVESENT TAB 25 MEQ PO SCH ×2 (09:54→22:25)
[2021-12-28] MEDS: ISOSORBIDE MONONITRATE 20 MG TAB PO SCH ×2 (09:57→22:25)
[2021-12-28] MEDS: SERTRALINE HCL 50 MG TAB PO SCH (09:57)
[2021-12-28] MEDS: ASPirin 81 mg TAB PO SCH (09:57)
[2021-12-28] MEDS: ENOXAPARIN SOD 40 MG/0.4 ML SYRINGE SC SCH (09:58)
[2021-12-28] MEDS ORDERED: PANTOPRAZOLE 40 MG/10 ML VIAL INJ IV SCH (10:00)
[2021-12-28] MEDS: ALPRAZolam 0.5 MG TAB PO SCH ×2 (10:00→22:25)
[2021-12-28] MEDS: PRIMIDONE 50 MG TAB PO SCH ×2 (10:31→22:24)
[2021-12-28 12:43] VITALS: BP 101/56
[2021-12-28] MEDS: MORPHINE SULFATE 4 MG/ML SYR/VIAL IV PRN ×3 (13:22→21:15)
[2021-12-28] MEDS ORDERED: GASTROGRAFIN 120 ML SOL ONE (15:27)
[2021-12-28] MEDS ORDERED: EZ PAQUE SUSP 12OZ BTL ONE (15:31)
[2021-12-28 16:36] VITALS: BP 93/55
[2021-12-28] MEDS: SUCRALFATE 1 GM/10 ML ORAL SUSP PO SCH ×2 (17:17→22:24)
[2021-12-28 21:47] VITALS: BP 108/61
[2021-12-28] MEDS: ATORVASTATIN 20 MG TAB PO SCH (22:25)
[2021-12-28] MEDS: TAMSULOSIN HYDROCHLORIDE 0.4 MG CAP PO SCH (22:25)
[2021-12-28] MEDS: PANTOPRAZOLE 40 MG/10 ML VIAL INJ IV SCH (22:26)
[2021-12-29] MEDS: MORPHINE SULFATE 4 MG/ML SYR/VIAL IV PRN ×6 (01:36→21:52)
[2021-12-29] MEDS: IPRATROPIUM BROM 0.5 MG/2.5ML INH SOL NEB SCH ×6 (02:47→22:20)
[2021-12-29] MEDS: ALBUTEROL SULF 2.5 MG/0.5ML(0.5%) NEB SOLN NEB PRN ×6 (02:48→23:35)
[2021-12-29 05:00] VITALS: BP 133/67
[2021-12-29] MEDS: FUROSEMIDE 20 MG/2 ML VIAL IV SCH ×2 (05:33→17:40)
[2021-12-29] MEDS: LEVOTHYROXINE SODIUM 50 MCG TAB PO SCH (05:34)
[2021-12-29] MEDS: SUCRALFATE 1 GM/10 ML ORAL SUSP PO SCH ×4 (05:34→21:01)
[2021-12-29] MEDS: methylPREDNISolone SOD SUCC 40 MG/ML VL IV SCH ×3 (05:34→21:01)
[2021-12-29] MEDS: ACETYLCYSTEINE 10 %(100MG/ML) SOL 4ML NEB SCH ×2 (06:32→14:28)
[2021-12-29] MEDS: BUDESONIDE (INHALATION) 0.5 MG/2 ML NEB NEB SCH ×2 (06:32→18:07)
[2021-12-29 08:37] VITALS: BP 124/67
[2021-12-29] MEDS: PANTOPRAZOLE 40 MG/10 ML VIAL INJ IV SCH ×2 (09:36→21:01)
[2021-12-29] MEDS: ENOXAPARIN SOD 40 MG/0.4 ML SYRINGE SC SCH (09:37)
[2021-12-29] MEDS: POTASSIUM EFFERVESENT TAB 25 MEQ PO SCH ×2 (09:37→21:02)
[2021-12-29] MEDS: ISOSORBIDE MONONITRATE 20 MG TAB PO SCH ×2 (09:39→21:50)
[2021-12-29] MEDS: SERTRALINE HCL 50 MG TAB PO SCH (09:39)
[2021-12-29] MEDS: ALPRAZolam 0.5 MG TAB PO SCH ×2 (09:40→21:50)
[2021-12-29] MEDS: ASPirin 81 mg TAB PO SCH (09:40)
[2021-12-29] MEDS: levoFLOXacin 750MG 150 ML IV SCH (09:40)
[2021-12-29] MEDS: PRIMIDONE 50 MG TAB PO SCH ×2 (09:40→21:03)
[2021-12-29] MEDS ORDERED: PANTOPRAZOLE 40 MG/10 ML VIAL INJ IV SCH (10:00)
[2021-12-29 13:00] VITALS: BP 115/62
[2021-12-29 16:31] VITALS: BP 112/61
[2021-12-29 20:00] VITALS: BP 112/61
[2021-12-29] MEDS: TAMSULOSIN HYDROCHLORIDE 0.4 MG CAP PO SCH (21:02)
[2021-12-29] MEDS: ATORVASTATIN 20 MG TAB PO SCH (21:02)
[2021-12-29 22:33] VITALS: BP 103/82
[2021-12-30] MEDS: IPRATROPIUM BROM 0.5 MG/2.5ML INH SOL NEB SCH ×6 (03:11→22:22)
[2021-12-30] MEDS: ALBUTEROL SULF 2.5 MG/0.5ML(0.5%) NEB SOLN NEB PRN ×6 (03:27→22:22)
[2021-12-30] MEDS: MORPHINE SULFATE 4 MG/ML SYR/VIAL IV PRN ×5 (03:37→22:20)
[2021-12-30 04:59] VITALS: BP 105/59
[2021-12-30] MEDS: BUDESONIDE (INHALATION) 0.5 MG/2 ML NEB NEB SCH ×2 (06:11→18:30)
[2021-12-30] MEDS: FUROSEMIDE 20 MG/2 ML VIAL IV SCH ×2 (06:21→18:15)
[2021-12-30] MEDS: SUCRALFATE 1 GM/10 ML ORAL SUSP PO SCH ×4 (06:22→22:03)
[2021-12-30] MEDS: methylPREDNISolone SOD SUCC 40 MG/ML VL IV SCH ×3 (06:22→22:03)
[2021-12-30] MEDS: LEVOTHYROXINE SODIUM 50 MCG TAB PO SCH (06:22)
[2021-12-30 09:00] VITALS: BP 107/60
[2021-12-30] MEDS: POTASSIUM EFFERVESENT TAB 25 MEQ PO SCH ×2 (09:56→22:03)
[2021-12-30] MEDS: ENOXAPARIN SOD 40 MG/0.4 ML SYRINGE SC SCH (09:56)
[2021-12-30] MEDS: ALPRAZolam 0.5 MG TAB PO SCH ×2 (09:56→22:04)
[2021-12-30] MEDS: ISOSORBIDE MONONITRATE 20 MG TAB PO SCH ×2 (09:57→22:04)
[2021-12-30] MEDS: levoFLOXacin 750MG 150 ML IV SCH (09:58)
[2021-12-30] MEDS: SERTRALINE HCL 50 MG TAB PO SCH (09:58)
[2021-12-30] MEDS: PANTOPRAZOLE 40 MG/10 ML VIAL INJ IV SCH ×2 (09:58→22:03)
[2021-12-30] MEDS: ASPirin 81 mg TAB PO SCH (09:59)
[2021-12-30] MEDS: PRIMIDONE 50 MG TAB PO SCH ×2 (10:00→22:08)
[2021-12-30 12:57] VITALS: BP 117/66
[2021-12-30 16:42] VITALS: BP 114/54
[2021-12-30 22:00] VITALS: BP 119/58
[2021-12-30] MEDS: TAMSULOSIN HYDROCHLORIDE 0.4 MG CAP PO SCH (22:03)
[2021-12-30] MEDS: ATORVASTATIN 20 MG TAB PO SCH (22:03)
[2021-12-31] MEDS: IPRATROPIUM BROM 0.5 MG/2.5ML INH SOL NEB SCH ×4 (02:26→14:29)
[2021-12-31] MEDS: ALBUTEROL SULF 2.5 MG/0.5ML(0.5%) NEB SOLN NEB PRN (02:27)
[2021-12-31] MEDS: MORPHINE SULFATE 4 MG/ML SYR/VIAL IV PRN ×4 (04:11→17:27)
[2021-12-31 05:00] VITALS: BP 126/72
[2021-12-31] MEDS: BUDESONIDE (INHALATION) 0.5 MG/2 ML NEB NEB SCH (06:10)
[2021-12-31] MEDS: methylPREDNISolone SOD SUCC 40 MG/ML VL IV SCH ×2 (06:46→13:30)
[2021-12-31] MEDS: SUCRALFATE 1 GM/10 ML ORAL SUSP PO SCH ×3 (06:46→17:25)
[2021-12-31] MEDS: FUROSEMIDE 20 MG/2 ML VIAL IV SCH ×2 (06:46→17:26)
[2021-12-31] MEDS: LEVOTHYROXINE SODIUM 50 MCG TAB PO SCH (06:47)
[2021-12-31 08:41] VITALS: BP 130/65
[2021-12-31] MEDS: levoFLOXacin 750MG 150 ML IV SCH (08:48)
[2021-12-31] MEDS: SERTRALINE HCL 50 MG TAB PO SCH (08:50)
[2021-12-31] MEDS: PRIMIDONE 50 MG TAB PO SCH (08:50)
[2021-12-31] MEDS: ALPRAZolam 0.5 MG TAB PO SCH (08:51)
[2021-12-31] MEDS: ISOSORBIDE MONONITRATE 20 MG TAB PO SCH (08:51)
[2021-12-31] MEDS: ASPirin 81 mg TAB PO SCH (08:51)
[2021-12-31] MEDS: PANTOPRAZOLE 40 MG/10 ML VIAL INJ IV SCH (08:52)
[2021-12-31] MEDS: ENOXAPARIN SOD 40 MG/0.4 ML SYRINGE SC SCH (08:53)
[2021-12-31] MEDS: POTASSIUM EFFERVESENT TAB 25 MEQ PO SCH (08:53)
[2021-12-31] MEDS ORDERED: METH4PAK PO (12:48)
[2021-12-31] MEDS ORDERED: LEVO500T31 PO (12:48)
[2021-12-31 12:59] VITALS: BP 111/59
[2021-12-31 15:40] VITALS: BP 130/65
[2021-12-31 17:27] VITALS: BP 120/72
== END 2021-12-31 18:23 | disposition home or self-care (01) | DRG 193 ==
LOC: ER 23:44 → EDBD 23:44 → TELE 12-27 10:41 → TELE-CENTR 12-27 17:26
PROVIDERS: ADMIT Hospitalist; ATTEND Internal Medicine Geriatric Medicine
PROC: 5A09357 Assistance with Respiratory Ventilation, Less than 24 Consecutive Hours, Continuous Positive Airway Pressure (ICD-10-PCS; principal; 2021-12-27)
DX: J18.8 Other pneumonia, unspecified organism (principal); I21.A1 Myocardial infarction type 2; J96.21 Acute and chronic respiratory failure with hypoxia; J96.22 Acute and chronic respiratory failure with hypercapnia; F11.20 Opioid dependence, uncomplicated; I16.9 Hypertensive crisis, unspecified; C34.90 Malignant neoplasm of unspecified part of unspecified bronchus or lung; J43.9 Emphysema, unspecified; D53.9 Nutritional anemia, unspecified; D63.8 Anemia in other chronic diseases classified elsewhere; F32.9 Major depressive disorder, single episode, unspecified; F41.9 Anxiety disorder, unspecified; G89.4 Chronic pain syndrome; I27.9 Pulmonary heart disease, unspecified; F17.200 Nicotine dependence, unspecified, uncomplicated; K21.9 Gastro-esophageal reflux disease without esophagitis; Z20.822 Contact with and (suspected) exposure to COVID-19; E03.9 Hypothyroidism, unspecified; F32.A Depression, unspecified; M54.50 Low back pain, unspecified; M10.9 Gout, unspecified; N40.0 Benign prostatic hyperplasia without lower urinary tract symptoms; R13.10 Dysphagia, unspecified; Z79.899 Other long term (current) drug therapy; Z83.3 Family history of diabetes mellitus; Z85.118 Personal history of other malignant neoplasm of bronchus and lung; Z90.81 Acquired absence of spleen; Z95.1 Presence of aortocoronary bypass graft; Z90.49 Acquired absence of other specified parts of digestive tract
CPT/HCPCS: 36415; 36600; 71045; 71275; 74220; 80053; 80061; 80307; 81001; 82550; 82728; 82805; 83036; 83605; 83615; 83690; 83735; 83880; 84100; 84156; 84443; 84484; 84550; 85025; 85379; 85610; 85652; 85730; 86141; 87040; 87070; 87077; 87081; 87086; 87186; 87205; 93005; 94640; 94660; 96365; 96372; 99291; C9113; G0378; J1100; J1956; J3490

== ENCOUNTER 2022-05-05 00:39 | Inpatient (IN) | payer OTHER ==
[~2022-05-05] VITALS: Ht 170.2 cm; Wt 62.3 kg
[2022-05-05] VITALS (10 sets, daily range): BP systolic 92–133; BP diastolic 44–79
[~2022-05-05 00:39] MED LIST changes: +ALBU18 IN; +ALBU2TAB4 NEB; +ALBUAER3 IN; +ASCO250T13 PO; +ATOR10TA PO; +BUDE0.5S NEB; +BUPR-160 PO; +CALC667C PO; +CHOL100079 OR; +FLU05NSL; +FORMPOW9 XX; +GABA300C10 PO; +IPRASOL39 NEB; +LEVO175T2 PO; +LEVO500T31 PO; +MAGN400T23 PO; +METH1CHW PO; +METH4PAK PO; +MIDO5TAB3 PO; +MORP1TAB12 PO; -MULT-733 OR; +MULT-733 PO; +PANT40T PO; +PRIM50TA5 PO; +RANI-226 PO; +SERT50TA19 PO; +SILD50TA42 PO; +SUCR1TAB22 PO; +TAMS0.4C36 PO; +TIZA4TAB9 PO; +TRAZ100T3 PO
[2022-05-05] MEDS ORDERED: methylPREDNISolone SOD SUCC 125 MG/2 ML VL ONE (00:45)
[2022-05-05] MEDS ORDERED: methylPREDNISolone SOD SUCC 125 MG/2 ML VL IV ONE (01:00)
[2022-05-05] MEDS ORDERED: IPRATROPIUM BROM 0.5 MG/2.5ML INH SOL NEB ONE (01:00)
[2022-05-05] MEDS ORDERED: ALBUTEROL SULF 2.5 MG/0.5ML(0.5%) NEB SOLN NEB ONE (01:00)
[2022-05-05 02:39] LABS: Basophils # (auto) 0 10 ^3/uL (0-0.2); Basophils % (auto) 0.3 % (0.0-2.0); Eosinophils # (auto) 0 10 ^3/uL (0-0.8); Eosinophils % (auto) 0.4 % (0.0-7.0); Hemoglobin 9.9 g/dL (13.5-17.5); Lymphocytes # (auto) 0.4 10 ^3/uL (0.4-5.4); Lymphocytes % (auto) 6.4 % (10.0-50.0); Mean Corpuscular Hemoglobin 29.8 pg (28.0-32.0); Mean Corpuscular Hgb Conc. 31.9 g/dL (32.0-36.0); Mean Corpuscular Volume 93.4 fL (80.0-100.0); Monocytes # (auto) 0.3 10 ^3/uL (0-1.3); Monocytes % (auto) 5.7 % (0.0-12.0); Neutrophils # (auto) 4.8 10 ^3/uL (1.6-8.6); Neutrophils % (auto) 87.2 % (37.0-80.0); Red Blood Cells 3.32 10^6/uL (4.5-5.90); Red Cell Distribution Width 14.8 % (11.8-14.3); White Blood Cell 5.5 10^3/uL (4.4-10.8)
[2022-05-05 02:55] LABS: Albumin 3.5 g/dL (3.4-5.0); Calcium 8.6 mg/dL (8.5-10.1); Potassium 4.3 mmol/L (3.5-5.1)
[2022-05-05 03:00] LABS: Bilirubin, Total 0.4 mg/dL (0.2-1.0)
[2022-05-05] MEDS ORDERED: NITROGLYCERIN 0.4 MG SL TAB SL PRN (04:30)
[2022-05-05] MEDS ORDERED: ALPRAZolam 0.5 MG TAB PO PRN (04:30)
[2022-05-05] MEDS ORDERED: ACETAMINOPHEN 325 MG TAB PO PRN (04:30)
[2022-05-05] MEDS ORDERED: MORPHINE SULFATE INJ 2 MG/ml SYRG IV PRN (04:30)
[2022-05-05] MEDS ORDERED: ONDANSETRON HCL 4 MG/2 ML VIAL IV PRN (04:30)
[2022-05-05] MEDS ORDERED: DOCUSATE SOD 100 MG CAP PO PRN (04:30)
[2022-05-05] MEDS: SODIUM CHLOR 0.9% PF (SALINE LOCK) 10ML VIAL/SYR IV SCH ×3 (07:52→22:14)
[2022-05-05] MEDS: methylPREDNISolone SOD SUCC 40 MG/ML VL IV SCH ×3 (07:53→22:06)
[2022-05-05] MEDS: LEVOTHYROXINE SODIUM 50 MCG TAB PO SCH (07:55)
[2022-05-05] MEDS ORDERED: AZITHROMYCIN 500MG/ 250ML 250 ML IV ONE (08:45)
[2022-05-05] MEDS: FAMOTIDINE (10MG/ML) 2ML VL IV SCH ×2 (11:00→22:06)
[2022-05-05] MEDS: ASPirin 81 mg TAB PO SCH (11:00)
[2022-05-05] MEDS: ENOXAPARIN SOD 40 MG/0.4 ML SYRINGE SC SCH (11:00)
[2022-05-05] MEDS: MULTIPLE VITAMIN TAB PO SCH (11:00)
[2022-05-05] MEDS: IPRATROPIUM BROM 0.5 MG/2.5ML INH SOL NEB PRN ×2 (11:56→22:26)
[2022-05-05] MEDS: ALBUTEROL SULF 2.5 MG/0.5ML(0.5%) NEB SOLN NEB PRN ×3 (11:56→22:26)
[2022-05-05 13:19] LABS: Basophils # (auto) 0 10 ^3/uL (0-0.2); Basophils % (auto) 0.1 % (0.0-2.0); Eosinophils # (auto) 0 10 ^3/uL (0-0.8); Hematocrit 30.1 % (41.0-53.0); Hemoglobin 9.7 g/dL (13.5-17.5); Lymphocytes # (auto) 0.3 10 ^3/uL (0.4-5.4); Lymphocytes % (auto) 5.6 % (10.0-50.0); Mean Corpuscular Hemoglobin 29.7 pg (28.0-32.0); Mean Corpuscular Hgb Conc. 32.1 g/dL (32.0-36.0); Mean Corpuscular Volume 92.6 fL (80.0-100.0); Monocytes # (auto) 0.4 10 ^3/uL (0-1.3); Monocytes % (auto) 7.1 % (0.0-12.0); Neutrophils # (auto) 4.8 10 ^3/uL (1.6-8.6); Neutrophils % (auto) 87.2 % (37.0-80.0); Red Blood Cells 3.25 10^6/uL (4.5-5.90); White Blood Cell 5.5 10^3/uL (4.4-10.8)
[2022-05-05 13:31] LABS: Albumin 2.9 g/dL (3.4-5.0); Calcium 8.6 mg/dL (8.5-10.1); Potassium 3.9 mmol/L (3.5-5.1)
[2022-05-05 13:41] LABS: BUN/Creatinine Ratio 22.9; Bilirubin, Total 0.3 mg/dL (0.2-1.0); Total Protein 6.5 g/dL (6.4-8.2)
[2022-05-05] MEDS ORDERED: FUROSEMIDE 40 MG/4 ML VIAL IV ONE (14:00)
[2022-05-05] MEDS: HYDROcodone-ACET 5/325MG TAB PO PRN ×2 (17:04→22:05)
[2022-05-05] MEDS ORDERED: ATORVASTATIN 20 MG TAB PO SCH (22:00)
[2022-05-06] MEDS: HYDROcodone-ACET 5/325MG TAB PO PRN ×3 (02:17→14:06)
[2022-05-06] MEDS: IPRATROPIUM BROM 0.5 MG/2.5ML INH SOL NEB PRN ×2 (02:37→06:02)
[2022-05-06] MEDS: ALBUTEROL SULF 2.5 MG/0.5ML(0.5%) NEB SOLN NEB PRN ×2 (02:37→06:02)
[2022-05-06 04:45] VITALS: BP 109/59
[2022-05-06 05:36] LABS: Albumin 2.7 g/dL (3.4-5.0)
[2022-05-06 05:40] LABS: BUN/Creatinine Ratio 21.7; Bilirubin, Total 0.4 mg/dL (0.2-1.0); Total Protein 6.6 g/dL (6.4-8.2)
[2022-05-06 06:07] LABS: Basophils # (auto) 0 10 ^3/uL (0-0.2); Basophils % (auto) 0.3 % (0.0-2.0); Eosinophils # (auto) 0 10 ^3/uL (0-0.8); Eosinophils % (auto) 0.1 % (0.0-7.0); Hematocrit 27.4 % (41.0-53.0); Hemoglobin 9.1 g/dL (13.5-17.5); Lymphocytes # (auto) 0.5 10 ^3/uL (0.4-5.4); Lymphocytes % (auto) 10.4 % (10.0-50.0); Mean Corpuscular Hemoglobin 30.5 pg (28.0-32.0); Mean Corpuscular Hgb Conc. 33.2 g/dL (32.0-36.0); Monocytes # (auto) 0.4 10 ^3/uL (0-1.3); Monocytes % (auto) 8.5 % (0.0-12.0); Neutrophils # (auto) 3.6 10 ^3/uL (1.6-8.6); Neutrophils % (auto) 80.7 % (37.0-80.0); Red Blood Cells 2.98 10^6/uL (4.5-5.90); Red Cell Distribution Width 14.6 % (11.8-14.3); White Blood Cell 4.4 10^3/uL (4.4-10.8)
[2022-05-06] MEDS: methylPREDNISolone SOD SUCC 40 MG/ML VL IV SCH ×3 (06:22→21:53)
[2022-05-06] MEDS: LEVOTHYROXINE SODIUM 50 MCG TAB PO SCH (06:27)
[2022-05-06] MEDS: SODIUM CHLOR 0.9% PF (SALINE LOCK) 10ML VIAL/SYR IV SCH ×3 (06:35→22:04)
[2022-05-06] MEDS ORDERED: IPRATROPIUM BROM 0.5 MG/2.5ML INH SOL NEB PRN (08:15)
[2022-05-06] MEDS ORDERED: ALBUTEROL SULF 2.5 MG/0.5ML(0.5%) NEB SOLN NEB PRN (08:15)
[2022-05-06 09:00] VITALS: BP_SYST 104; BP_SYST 111; BP_DIAS 53; BP_DIAS 63
[2022-05-06] MEDS: ASPirin 81 mg TAB PO SCH (09:22)
[2022-05-06] MEDS: AZITHROMYCIN 500MG/ 250ML 250 ML IV SCH (09:22)
[2022-05-06] MEDS: MULTIPLE VITAMIN TAB PO SCH (09:22)
[2022-05-06] MEDS: FAMOTIDINE (10MG/ML) 2ML VL IV SCH ×2 (09:22→21:53)
[2022-05-06] MEDS: ENOXAPARIN SOD 40 MG/0.4 ML SYRINGE SC SCH (09:23)
[2022-05-06] MEDS: ALBUTEROL SULF 2.5 MG/0.5ML(0.5%) NEB SOLN NEB SCH ×4 (10:03→22:14)
[2022-05-06] MEDS: IPRATROPIUM BROM 0.5 MG/2.5ML INH SOL NEB SCH ×4 (10:03→22:14)
[2022-05-06 13:00] VITALS: BP 111/57
[2022-05-06] MEDS: ACETYLCYSTEINE 20%(200MG/ML) SOL 4ML NEB SCH ×2 (13:55→22:14)
[2022-05-06] MEDS ORDERED: MORPHINE SULFATE 4 MG/ML SYR/VIAL IV PRN (16:15)
[2022-05-06] MEDS ORDERED: OLANZapine 5 MG TAB PO ONE (16:15)
[2022-05-06] MEDS ORDERED: SERTRALINE HCL 50 MG TAB PO ONE (16:15)
[2022-05-06] MEDS ORDERED: BUMETANIDE 1 MG TAB PO ONE (16:15)
[2022-05-06 17:00] VITALS: BP 103/61
[2022-05-06] MEDS: TAMSULOSIN HYDROCHLORIDE 0.4 MG CAP PO SCH (17:15)
[2022-05-06] MEDS: SUCRALFATE 1 GM TAB PO SCH ×2 (17:15→21:52)
[2022-05-06] MEDS: buPROPion HCL 100 MG TAB PO SCH (17:16)
[2022-05-06] MEDS: PRIMIDONE 50 MG TAB PO SCH (21:52)
[2022-05-06] MEDS: ATORVASTATIN 20 MG TAB PO SCH (21:53)
[2022-05-06 22:00] VITALS: BP 109/60
[2022-05-06] MEDS: MORPHINE SULFATE 4 MG/ML SYR/VIAL IV PRN (22:43)
[2022-05-06] MEDS: ALPRAZolam 0.5 MG TAB PO PRN (23:49)
[2022-05-07] MEDS: ALBUTEROL SULF 2.5 MG/0.5ML(0.5%) NEB SOLN NEB SCH ×6 (02:05→22:01)
[2022-05-07] MEDS: IPRATROPIUM BROM 0.5 MG/2.5ML INH SOL NEB SCH ×6 (02:05→22:00)
[2022-05-07] MEDS: MORPHINE SULFATE 4 MG/ML SYR/VIAL IV PRN ×5 (02:56→20:37)
[2022-05-07 05:00] VITALS: BP 138/66
[2022-05-07] MEDS: PRIMIDONE 50 MG TAB PO SCH ×3 (06:30→21:49)
[2022-05-07] MEDS: LEVOTHYROXINE SODIUM 50 MCG TAB PO SCH (06:30)
[2022-05-07] MEDS: buPROPion HCL 100 MG TAB PO SCH ×2 (06:30→17:49)
[2022-05-07] MEDS: SUCRALFATE 1 GM TAB PO SCH ×4 (06:30→21:49)
[2022-05-07] MEDS: methylPREDNISolone SOD SUCC 40 MG/ML VL IV SCH ×3 (06:31→21:48)
[2022-05-07] MEDS: SODIUM CHLOR 0.9% PF (SALINE LOCK) 10ML VIAL/SYR IV SCH ×3 (06:41→21:47)
[2022-05-07] MEDS: ACETYLCYSTEINE 20%(200MG/ML) SOL 4ML NEB SCH ×3 (06:49→22:00)
[2022-05-07 08:30] VITALS: BP 118/66
[2022-05-07] MEDS: ASPirin 81 mg TAB PO SCH (09:00)
[2022-05-07] MEDS: AZITHROMYCIN 500MG/ 250ML 250 ML IV SCH (09:00)
[2022-05-07] MEDS: FAMOTIDINE (10MG/ML) 2ML VL IV SCH (09:00)
[2022-05-07] MEDS: BUMETANIDE 1 MG TAB PO SCH (09:00)
[2022-05-07] MEDS: MULTIPLE VITAMIN TAB PO SCH (09:01)
[2022-05-07] MEDS: SERTRALINE HCL 50 MG TAB PO SCH (09:01)
[2022-05-07] MEDS: OLANZapine 5 MG TAB PO SCH (09:01)
[2022-05-07] MEDS: ENOXAPARIN SOD 40 MG/0.4 ML SYRINGE SC SCH (09:01)
[2022-05-07 12:30] VITALS: BP 104/55
[2022-05-07] MEDS: TAMSULOSIN HYDROCHLORIDE 0.4 MG CAP PO SCH (16:16)
[2022-05-07 16:30] VITALS: BP 115/65
[2022-05-07 20:00] VITALS: BP 112/55
[2022-05-07] MEDS: ATORVASTATIN 20 MG TAB PO SCH (21:49)
[2022-05-07 22:00] VITALS: BP 112/51
[2022-05-08] VITALS (19 sets, daily range): BP systolic 96–144; BP diastolic 47–67
[2022-05-08] MEDS: MORPHINE SULFATE 4 MG/ML SYR/VIAL IV PRN ×5 (00:38→21:39)
[2022-05-08] MEDS: ALBUTEROL SULF 2.5 MG/0.5ML(0.5%) NEB SOLN NEB SCH ×6 (02:11→21:58)
[2022-05-08] MEDS: IPRATROPIUM BROM 0.5 MG/2.5ML INH SOL NEB SCH ×6 (02:11→21:58)
[2022-05-08] MEDS: SODIUM CHLOR 0.9% PF (SALINE LOCK) 10ML VIAL/SYR IV SCH ×3 (06:09→21:37)
[2022-05-08] MEDS: methylPREDNISolone SOD SUCC 40 MG/ML VL IV SCH ×3 (06:10→21:37)
[2022-05-08] MEDS: PRIMIDONE 50 MG TAB PO SCH ×3 (06:10→21:38)
[2022-05-08] MEDS: LEVOTHYROXINE SODIUM 50 MCG TAB PO SCH (06:24)
[2022-05-08] MEDS: SUCRALFATE 1 GM TAB PO SCH ×4 (06:24→21:37)
[2022-05-08] MEDS: buPROPion HCL 100 MG TAB PO SCH ×2 (06:25→17:41)
[2022-05-08] MEDS: ACETYLCYSTEINE 20%(200MG/ML) SOL 4ML NEB SCH ×2 (06:53→21:59)
[2022-05-08] MEDS ORDERED: IODIXANOL 320MG/ML 100ML BTL IV ONE (09:37)
[2022-05-08] MEDS ORDERED: LIDOCAINE 2%HCL (LOCAL ANESTH.) INJ 20ML MDV ONE (09:37)
[2022-05-08] MEDS: ENOXAPARIN SOD 40 MG/0.4 ML SYRINGE SC SCH (10:00)
[2022-05-08] MEDS ORDERED: VERAPAMIL 2.5MG/ML INJ 2ML VIAL IV ONE (10:00)
[2022-05-08] MEDS ORDERED: ANGIOMAX 250 MG VIAL IV ONE (10:00)
[2022-05-08] MEDS ORDERED: fentaNYL CITRATE 100 MCG/2 ML VL ONE (10:01)
[2022-05-08] MEDS ORDERED: MIDAZOLAM HCL 2MG/2ML 2ml VIAL (1mg/ml) ONE (10:01)
[2022-05-08] MEDS ORDERED: HEPARIN SODIUM (PORCINE) 5000 UNITS/ML 1ML VIAL ONE (10:01)
[2022-05-08] MEDS ORDERED: SODIUM CHL 0.9% 0 ML ONE (10:01)
[2022-05-08 10:02] LABS: INR 1.08 (0.9-1.15); Partial Thromboplastin Time 37.9 sec (24.6-33.4)
[2022-05-08] MEDS ORDERED: [UNRECOGNIZED DRUG - CODE] PO (10:03)
[2022-05-08] MEDS ORDERED: SODIUM CHL 0.9% 50 ML ONE (10:03)
[2022-05-08] MEDS ORDERED: NITROGLYCERIN 5MG/ML 10ML VIAL IV ONE (10:03)
[2022-05-08] MEDS ORDERED: ALBU0.084 NEB (10:03)
[2022-05-08] MEDS ORDERED: FORM20NE3 NEB (10:12)
[2022-05-08] MEDS ORDERED: CHOL1TAB22 PO (10:12)
[2022-05-08] MEDS ORDERED: diphenhdrAMINE HCL 50 MG/1 ML VL ONE (10:13)
[2022-05-08] MEDS: ASPirin 81 mg TAB PO SCH (12:33)
[2022-05-08] MEDS: OLANZapine 5 MG TAB PO SCH (12:34)
[2022-05-08] MEDS: BUMETANIDE 1 MG TAB PO SCH (12:34)
[2022-05-08] MEDS: SERTRALINE HCL 50 MG TAB PO SCH (12:35)
[2022-05-08] MEDS: AZITHROMYCIN 250 MG TAB PO SCH (12:35)
[2022-05-08] MEDS: MULTIPLE VITAMIN TAB PO SCH (12:35)
[2022-05-08] MEDS ORDERED: FUROSEMIDE 40 MG/4 ML VIAL IV ONE (15:15)
[2022-05-08] MEDS: TAMSULOSIN HYDROCHLORIDE 0.4 MG CAP PO SCH (17:40)
[2022-05-08] MEDS: ATORVASTATIN 20 MG TAB PO SCH (21:38)
[2022-05-08] MEDS: ALPRAZolam 0.5 MG TAB PO PRN (21:39)
[2022-05-09] MEDS: MORPHINE SULFATE 4 MG/ML SYR/VIAL IV PRN ×3 (01:55→10:48)
[2022-05-09] MEDS: ALBUTEROL SULF 2.5 MG/0.5ML(0.5%) NEB SOLN NEB SCH ×4 (02:33→14:21)
[2022-05-09] MEDS: IPRATROPIUM BROM 0.5 MG/2.5ML INH SOL NEB SCH ×4 (02:33→14:21)
[2022-05-09 05:00] VITALS: BP 147/74
[2022-05-09] MEDS: SODIUM CHLOR 0.9% PF (SALINE LOCK) 10ML VIAL/SYR IV SCH ×2 (06:06→14:12)
[2022-05-09] MEDS: methylPREDNISolone SOD SUCC 40 MG/ML VL IV SCH ×2 (06:06→14:12)
[2022-05-09] MEDS: SUCRALFATE 1 GM TAB PO SCH ×2 (06:07→11:08)
[2022-05-09] MEDS: PRIMIDONE 50 MG TAB PO SCH ×2 (06:07→14:12)
[2022-05-09] MEDS: LEVOTHYROXINE SODIUM 50 MCG TAB PO SCH (06:08)
[2022-05-09] MEDS: ACETYLCYSTEINE 20%(200MG/ML) SOL 4ML NEB SCH (06:10)
[2022-05-09] MEDS: buPROPion HCL 100 MG TAB PO SCH (06:10)
[2022-05-09 08:20] VITALS: BP 122/60
[2022-05-09 08:39] LABS: Basophils # (auto) 0 10 ^3/uL (0-0.2); Basophils % (auto) 0.4 % (0.0-2.0); Eosinophils # (auto) 0 10 ^3/uL (0-0.8); Eosinophils % (auto) 0.2 % (0.0-7.0); Hematocrit 30.5 % (41.0-53.0); Hemoglobin 10.1 g/dL (13.5-17.5); Lymphocytes # (auto) 0.4 10 ^3/uL (0.4-5.4); Lymphocytes % (auto) 5.4 % (10.0-50.0); Mean Corpuscular Hgb Conc. 33.2 g/dL (32.0-36.0); Mean Corpuscular Volume 93.5 fL (80.0-100.0); Monocytes # (auto) 0.3 10 ^3/uL (0-1.3); Monocytes % (auto) 4.4 % (0.0-12.0); Neutrophils # (auto) 6.9 10 ^3/uL (1.6-8.6); Neutrophils % (auto) 89.6 % (37.0-80.0); Red Blood Cells 3.27 10^6/uL (4.5-5.90); Red Cell Distribution Width 14.9 % (11.8-14.3); White Blood Cell 7.7 10^3/uL (4.4-10.8)
[2022-05-09 08:56] LABS: Albumin 3.1 g/dL (3.4-5.0); Calcium 8.9 mg/dL (8.5-10.1); Potassium 3.8 mmol/L (3.5-5.1)
[2022-05-09 09:00] VITALS: BP 122/60
[2022-05-09 09:01] LABS: BUN/Creatinine Ratio 22.7; Bilirubin, Total 0.3 mg/dL (0.2-1.0); Total Protein 6.8 g/dL (6.4-8.2)
[2022-05-09] MEDS: MULTIPLE VITAMIN TAB PO SCH (10:45)
[2022-05-09] MEDS: ASPirin 81 mg TAB PO SCH (10:45)
[2022-05-09] MEDS: ENOXAPARIN SOD 40 MG/0.4 ML SYRINGE SC SCH (10:45)
[2022-05-09] MEDS: BUMETANIDE 1 MG TAB PO SCH (10:46)
[2022-05-09] MEDS: OLANZapine 5 MG TAB PO SCH (10:46)
[2022-05-09] MEDS: AZITHROMYCIN 250 MG TAB PO SCH (10:47)
[2022-05-09] MEDS: SERTRALINE HCL 50 MG TAB PO SCH (10:47)
[2022-05-09] MEDS ORDERED: ASPI-325 PO (11:38)
[2022-05-09] MEDS ORDERED: DOX100T GT (11:38)
[2022-05-09] MEDS ORDERED: METH4PAK PO (11:38)
[2022-05-09] MEDS ORDERED: PANTOPRAZOLE 40 MG TAB PO ONE (11:45)
[2022-05-09 12:51] VITALS: BP 124/61
[2022-05-09 13:20] VITALS: BP 124/61
[2022-05-10] MEDS ORDERED: PANTOPRAZOLE 40 MG TAB PO SCH (10:00)
== END 2022-05-09 16:33 | disposition home or self-care (01) | DRG 280 ==
LOC: EDBD 00:39 → ER 00:39 → TELE 04:39 → TELE-CENTR 21:39
PROVIDERS: ADMIT Nurse Practitioner Family; ATTEND Internal Medicine Geriatric Medicine
PROC: 5A09357 Assistance with Respiratory Ventilation, Less than 24 Consecutive Hours, Continuous Positive Airway Pressure (ICD-10-PCS; principal; 2022-05-05)
PROC: B211YZZ Fluoroscopy of Multiple Coronary Arteries using Other Contrast (ICD-10-PCS; 2022-05-08)
DX: I21.4 Non-ST elevation (NSTEMI) myocardial infarction (principal); J18.9 Pneumonia, unspecified organism; J96.21 Acute and chronic respiratory failure with hypoxia; C34.90 Malignant neoplasm of unspecified part of unspecified bronchus or lung; J44.0 Chronic obstructive pulmonary disease with (acute) lower respiratory infection; J44.1 Chronic obstructive pulmonary disease with (acute) exacerbation; Z68.42 Body mass index [BMI] 45.0-49.9, adult; J98.11 Atelectasis; Z20.822 Contact with and (suspected) exposure to COVID-19; D64.9 Anemia, unspecified; E66.01 Morbid (severe) obesity due to excess calories; F17.210 Nicotine dependence, cigarettes, uncomplicated; I10 Essential (primary) hypertension; I25.10 Atherosclerotic heart disease of native coronary artery without angina pectoris; Z81.8 Family history of other mental and behavioral disorders; Z82.5 Family history of asthma and other chronic lower respiratory diseases; Z82.49 Family history of ischemic heart disease and other diseases of the circulatory system; Z83.3 Family history of diabetes mellitus; Z85.118 Personal history of other malignant neoplasm of bronchus and lung
CPT/HCPCS: 36415; 36600; 71045; 80053; 82805; 83605; 83880; 84484; 85025; 85610; 85730; 87040; 87070; 87077; 87186; 87205; 93005; 94640; 94660; 96365; 96375; 97163; 99152; G0378; J2250; J2405; J3490; Q9967

== ENCOUNTER 2022-11-24 19:40 | Inpatient (IN) | payer OTHER ==
[~2022-11-24] VITALS: Ht 172.7 cm; Wt 59.7 kg
[~2022-11-24 19:40] MED LIST changes: -ALBU0.084 IN; +ALBU0.084 NEB; -ALBU18 IN; -ALBU2TAB4 NEB; -ALBUAER17 INH; -ASCO250T13 PO; -ASCO500T11 PO; +ASPI-325 PO; -ATOR10TA52 PO; -BUPR-160 PO; -CALC667C PO; -CHOL100079 OR; +CHOL1TAB22 PO; -CHOL20007 OR; +DOX100T GT; -FLUT50SP13; +FORM20NE3 NEB; -FORMPOW9 XX; -Gabapentin PO; -IPRASOL39 IN; -LEVO175T2 PO; -LEVO500T31 PO; -MAGN400T40 OR; -METH1CHW PO; -PANT40T PO; -PRIM50TA5 GT; -RANI150C11 PO; -SERT50TA19 PO; -SUCR1TAB PO; -TAMS0.4C36 PO; -TIZA4TAB9 PO; -TRAZADONE PO; +[UNRECOGNIZED DRUG - CODE] PO
[2022-11-24] MEDS ORDERED: ACETAMINOPHEN 325 MG TAB PO ONE (20:45)
[2022-11-24] MEDS ORDERED: PIPERACILLIN-TAZOB 3.375GM 100 ML IV ONE (21:30)
[2022-11-24] MEDS ORDERED: VANCOMYCIN 1GM/250ML 250 ML IV ONE (21:30)
[2022-11-24] MEDS ORDERED: LACTATED RINGER'S 1,000 ML IV ONE (21:30)
[2022-11-24 21:44] LABS: Basophils # (auto) 0 10 ^3/uL (0-0.2); Basophils % (auto) 0.2 % (0.0-2.0); Eosinophils # (auto) 0.1 10 ^3/uL (0-0.8); Eosinophils % (auto) 2.1 % (0.0-7.0); Hematocrit 31.1 % (41.0-53.0); Hemoglobin 10.4 g/dL (13.5-17.5); Lymphocytes # (auto) 0.5 10 ^3/uL (0.4-5.4); Lymphocytes % (auto) 11.3 % (10.0-50.0); Mean Corpuscular Hemoglobin 31.2 pg (28.0-32.0); Mean Corpuscular Hgb Conc. 33.4 g/dL (32.0-36.0); Mean Corpuscular Volume 93.2 fL (80.0-100.0); Monocytes # (auto) 0.4 10 ^3/uL (0-1.3); Monocytes % (auto) 9.1 % (0.0-12.0); Neutrophils # (auto) 3.3 10 ^3/uL (1.6-8.6); Neutrophils % (auto) 77.3 % (37.0-80.0); Nucleated Red Blood Cells % 0.2 %; Red Blood Cells 3.34 10^6/uL (4.5-5.90); Red Cell Distribution Width 14.6 % (11.8-14.3); White Blood Cell 4.3 10^3/uL (4.4-10.8)
[2022-11-24] MEDS ORDERED: DexAMETHasone SOD PHOS 10MG/1ML VIAL INJ IV ONE (21:45)
[2022-11-24] MEDS ORDERED: ALBUTEROL SULF 2.5 MG/0.5ML(0.5%) NEB SOLN NEB ONE (21:45)
[2022-11-24] MEDS ORDERED: IBUPROFEN 600 MG TAB PO ONE (21:45)
[2022-11-24] MEDS ORDERED: ACETAMINOPHEN 500 MG TAB PO ONE (21:45)
[2022-11-24] MEDS ORDERED: ACETYLCYSTEINE 20%(200MG/ML) SOL 4ML NEB ONE (21:45)
[2022-11-24 22:01] LABS: Albumin 3.1 g/dL (3.4-5.0); BUN/Creatinine Ratio 17.5; Calcium 7.9 mg/dL (8.5-10.1); Magnesium 1.9 mg/dL (1.6-2.6); Potassium 3.9 mmol/L (3.5-5.1)
[2022-11-24 22:06] LABS: Bilirubin, Total 0.2 mg/dL (0.2-1.0); Total Protein 6.7 g/dL (6.4-8.2)
[2022-11-24] MEDS ORDERED: ONDANSETRON HCL 4 MG/2 ML VIAL IV ONE (23:15)
[2022-11-24] MEDS ORDERED: MORPHINE SULFATE 4 MG/ML SYR/VIAL IV ONE (23:15)
[2022-11-25] MEDS ORDERED: MORPHINE SULFATE 4 MG/ML SYR/VIAL IV ONE (02:45)
[2022-11-25] MEDS ORDERED: VANCOMYCIN PER PHARMACY 0 MG IV SCH (04:45)
[2022-11-25] MEDS ORDERED: MORPHINE SULFATE INJ 2 MG/ml SYRG IV PRN (04:45)
[2022-11-25] MEDS ORDERED: HYDROcodone-ACET 5/325MG TAB PO PRN (04:45)
[2022-11-25] MEDS ORDERED: IBUPROFEN 600 MG TAB PO PRN (04:45)
[2022-11-25] MEDS ORDERED: NITROGLYCERIN 0.4 MG SL TAB SL PRN (05:30)
[2022-11-25] MEDS: SODIUM CHLORIDE 0.9% 1,000 ML IV SCH ×2 (05:44→21:25)
[2022-11-25] MEDS: methylPREDNISolone SOD SUCC 40 MG/ML VL IV SCH ×3 (05:44→22:28)
[2022-11-25] MEDS ORDERED: HYDROmorphone HCL 2 MG/ML VL/or syr IV ONE (06:45)
[2022-11-25 07:04] LABS: Basophils # (auto) 0 10 ^3/uL (0-0.2); Basophils % (auto) 0.3 % (0.0-2.0); Eosinophils # (auto) 0 10 ^3/uL (0-0.8); Eosinophils % (auto) 0.1 % (0.0-7.0); Hematocrit 30.7 % (41.0-53.0); Hemoglobin 10.4 g/dL (13.5-17.5); Lymphocytes # (auto) 0.4 10 ^3/uL (0.4-5.4); Lymphocytes % (auto) 8.8 % (10.0-50.0); Mean Corpuscular Hemoglobin 31.1 pg (28.0-32.0); Mean Corpuscular Hgb Conc. 33.8 g/dL (32.0-36.0); Monocytes # (auto) 0.3 10 ^3/uL (0-1.3); Monocytes % (auto) 6.2 % (0.0-12.0); Neutrophils % (auto) 84.6 % (37.0-80.0); Nucleated Red Blood Cells % 0.1 %; Red Blood Cells 3.33 10^6/uL (4.5-5.90); Red Cell Distribution Width 14.4 % (11.8-14.3); White Blood Cell 4.8 10^3/uL (4.4-10.8)
[2022-11-25] MEDS: ALBUTEROL SULF 2.5 MG/0.5ML(0.5%) NEB SOLN NEB PRN ×2 (07:07→18:11)
[2022-11-25] MEDS: LEVOTHYROXINE SODIUM 50 MCG TAB PO SCH (07:27)
[2022-11-25 07:31] LABS: Potassium 4.2 mmol/L (3.5-5.1)
[2022-11-25 07:45] LABS: Albumin 2.7 g/dL (3.4-5.0); Bilirubin, Total 0.2 mg/dL (0.2-1.0); Calcium 8.2 mg/dL (8.5-10.1); Total Protein 6.8 g/dL (6.4-8.2)
[2022-11-25] MEDS: AZITHROMYCIN 500MG/ 250ML 250 ML IV SCH (09:29)
[2022-11-25] MEDS: VANCOMYCIN 1GM/250ML 250 ML IV SCH (11:44)
[2022-11-25] MEDS: ONDANSETRON HCL 4 MG/2 ML VIAL IV PRN ×2 (11:44→20:00)
[2022-11-25] MEDS: MORPHINE SULFATE INJ 2 MG/ml SYRG IV PRN ×3 (11:45→20:00)
[2022-11-25 12:20] VITALS: BP 174/57
[2022-11-26] MEDS: MORPHINE SULFATE INJ 2 MG/ml SYRG IV PRN ×6 (00:08→21:07)
[2022-11-26] MEDS: ALBUTEROL SULF 2.5 MG/0.5ML(0.5%) NEB SOLN NEB PRN ×3 (00:21→20:09)
[2022-11-26] MEDS: VANCOMYCIN 1GM/250ML 250 ML IV SCH ×3 (00:55→22:07)
[2022-11-26 05:21] LABS: Basophils # (auto) 0.1 10 ^3/uL (0-0.2); Basophils % (auto) 0.9 % (0.0-2.0); Eosinophils # (auto) 0 10 ^3/uL (0-0.8); Eosinophils % (auto) 0.2 % (0.0-7.0); Hematocrit 32.7 % (41.0-53.0); Hemoglobin 10.9 g/dL (13.5-17.5); Lymphocytes # (auto) 0.4 10 ^3/uL (0.4-5.4); Lymphocytes % (auto) 5.3 % (10.0-50.0); Mean Corpuscular Hemoglobin 30.5 pg (28.0-32.0); Mean Corpuscular Hgb Conc. 33.3 g/dL (32.0-36.0); Mean Corpuscular Volume 91.4 fL (80.0-100.0); Monocytes # (auto) 0.3 10 ^3/uL (0-1.3); Monocytes % (auto) 4.8 % (0.0-12.0); Neutrophils # (auto) 5.9 10 ^3/uL (1.6-8.6); Neutrophils % (auto) 88.8 % (37.0-80.0); Nucleated Red Blood Cells % 0.1 %; Red Blood Cells 3.58 10^6/uL (4.5-5.90); Red Cell Distribution Width 14.4 % (11.8-14.3); White Blood Cell 6.6 10^3/uL (4.4-10.8)
[2022-11-26 05:41] LABS: Albumin 2.8 g/dL (3.4-5.0); Calcium 8.6 mg/dL (8.5-10.1); Potassium 4.4 mmol/L (3.5-5.1)
[2022-11-26 05:45] LABS: BUN/Creatinine Ratio 20.8; Bilirubin, Total 0.3 mg/dL (0.2-1.0); Total Protein 7.1 g/dL (6.4-8.2)
[2022-11-26] MEDS: ALBUTEROL SULF 2.5 MG/0.5ML(0.5%) NEB SOLN NEB SCH ×5 (06:01→21:58)
[2022-11-26] MEDS: methylPREDNISolone SOD SUCC 40 MG/ML VL IV SCH ×3 (06:10→22:11)
[2022-11-26] MEDS: LEVOTHYROXINE SODIUM 50 MCG TAB PO SCH (06:11)
[2022-11-26] MEDS: AZITHROMYCIN 500MG/ 250ML 250 ML IV SCH (09:47)
[2022-11-26] MEDS: IPRATROPIUM BROM 0.5 MG/2.5ML INH SOL NEB SCH ×3 (14:19→21:58)
[2022-11-26] MEDS: SODIUM CHLORIDE 0.9% 1,000 ML IV SCH (14:24)
[2022-11-26] MEDS: IPRATROPIUM BROM 0.5 MG/2.5ML INH SOL NEB PRN ×2 (16:19→20:09)
[2022-11-26 16:39] VITALS: BP 188/95
[2022-11-26] MEDS: ONDANSETRON HCL 4 MG/2 ML VIAL IV PRN (17:19)
[2022-11-26] MEDS ORDERED: [UNRECOGNIZED DRUG - CODE] PO (17:30)
[2022-11-26] MEDS ORDERED: SERT-160 PO (17:30)
[2022-11-26] MEDS ORDERED: cefTRIAXone 1GM/50ML D5W 50 ML IV ONE (18:15)
[2022-11-26 22:00] VITALS: BP 166/92
[2022-11-26] MEDS ORDERED: dilTIAZem 25 MG/5 ML VIAL IV ONE (22:00)
[2022-11-26] MEDS ORDERED: FUROSEMIDE 20 MG/2 ML VIAL IV ONE (22:00)
[2022-11-27] VITALS (7 sets, daily range): BP systolic 100–122; BP diastolic 63–65
[2022-11-27] MEDS: ALBUTEROL SULF 2.5 MG/0.5ML(0.5%) NEB SOLN NEB SCH ×6 (01:53→21:40)
[2022-11-27] MEDS: IPRATROPIUM BROM 0.5 MG/2.5ML INH SOL NEB SCH ×6 (01:54→21:40)
[2022-11-27] MEDS: MORPHINE SULFATE INJ 2 MG/ml SYRG IV PRN ×6 (04:00→20:29)
[2022-11-27] MEDS: IPRATROPIUM BROM 0.5 MG/2.5ML INH SOL NEB PRN ×2 (04:18→16:05)
[2022-11-27] MEDS: ALBUTEROL SULF 2.5 MG/0.5ML(0.5%) NEB SOLN NEB PRN ×2 (04:18→16:05)
[2022-11-27] MEDS: LEVOTHYROXINE SODIUM 50 MCG TAB PO SCH (06:05)
[2022-11-27] MEDS: methylPREDNISolone SOD SUCC 40 MG/ML VL IV SCH ×3 (06:05→22:03)
[2022-11-27] MEDS: VANCOMYCIN 1GM/250ML 250 ML IV SCH ×2 (08:01→18:05)
[2022-11-27] MEDS: cefTRIAXone 1GM/50ML D5W 50 ML IV SCH (09:42)
[2022-11-27] MEDS: AZITHROMYCIN 500MG/ 250ML 250 ML IV SCH (10:41)
[2022-11-27] MEDS: ALPRAZolam 0.5 MG TAB PO PRN ×2 (10:43→22:03)
[2022-11-27] MEDS ORDERED: FUROSEMIDE 20 MG/2 ML VIAL IV ONE (13:30)
[2022-11-27] MEDS ORDERED: IOHEXOL 350 MG/ML 100ML IJ ONE (14:10)
[2022-11-27 15:01] LABS: Urine Bacteria NONE SEEN /hpf (None Seen); Urine Blood 3+ /uL (Negative); Urine Mucus FEW (None Seen); Urine Specific Gravity 1.017 (1.001-1.035); Urine WBC 572 /hpf (0 - 3); Urine WBC Clumps PRESENT /hpf (None Seen)
[2022-11-27] MEDS: FUROSEMIDE 20 MG/2 ML VIAL IV SCH (18:05)
[2022-11-27] MEDS: SACUBITRIL-VALSARTAN 24mg/26mg TAB PO SCH (22:00)
[2022-11-27] MEDS: CARVEDILOL 3.125 MG TAB PO SCH (22:04)
[2022-11-28] VITALS (7 sets, daily range): BP systolic 105–142; BP diastolic 64–82
[2022-11-28] MEDS: MORPHINE SULFATE INJ 2 MG/ml SYRG IV PRN ×8 (00:54→22:36)
[2022-11-28] MEDS: IPRATROPIUM BROM 0.5 MG/2.5ML INH SOL NEB SCH ×6 (01:58→21:49)
[2022-11-28] MEDS: ALBUTEROL SULF 2.5 MG/0.5ML(0.5%) NEB SOLN NEB SCH ×6 (01:58→21:48)
[2022-11-28] MEDS: VANCOMYCIN 1GM/250ML 250 ML IV SCH (04:08)
[2022-11-28] MEDS: methylPREDNISolone SOD SUCC 40 MG/ML VL IV SCH ×3 (05:25→22:35)
[2022-11-28] MEDS: FUROSEMIDE 20 MG/2 ML VIAL IV SCH ×2 (05:35→14:55)
[2022-11-28] MEDS: EMPAGLIFLOZIN 10 MG TAB PO SCH (06:07)
[2022-11-28] MEDS: LEVOTHYROXINE SODIUM 50 MCG TAB PO SCH (06:07)
[2022-11-28] MEDS: ONDANSETRON HCL 4 MG/2 ML VIAL IV PRN ×2 (06:15→15:01)
[2022-11-28 06:46] LABS: Basophils # (auto) 0 10 ^3/uL (0-0.2); Basophils % (auto) 0.1 % (0.0-2.0); Eosinophils # (auto) 0 10 ^3/uL (0-0.8); Hematocrit 31.4 % (41.0-53.0); Hemoglobin 11.2 g/dL (13.5-17.5); Lymphocytes # (auto) 0.7 10 ^3/uL (0.4-5.4); Lymphocytes % (auto) 13.2 % (10.0-50.0); Mean Corpuscular Hemoglobin 31.7 pg (28.0-32.0); Mean Corpuscular Hgb Conc. 35.6 g/dL (32.0-36.0); Mean Corpuscular Volume 89.1 fL (80.0-100.0); Monocytes # (auto) 0.5 10 ^3/uL (0-1.3); Monocytes % (auto) 10.2 % (0.0-12.0); Neutrophils # (auto) 3.8 10 ^3/uL (1.6-8.6); Neutrophils % (auto) 76.5 % (37.0-80.0); Nucleated Red Blood Cells % 0.1 %; Red Blood Cells 3.53 10^6/uL (4.5-5.90); Red Cell Distribution Width 14.4 % (11.8-14.3); White Blood Cell 4.9 10^3/uL (4.4-10.8)
[2022-11-28 06:53] LABS: BUN/Creatinine Ratio 34.1 (10.0-20.0); Calcium 8.5 mg/dL (8.5-10.1); Potassium 3.6 mmol/L (3.5-5.1)
[2022-11-28] MEDS: SACUBITRIL-VALSARTAN 24mg/26mg TAB PO SCH ×3 (10:00→22:34)
[2022-11-28] MEDS: CARVEDILOL 3.125 MG TAB PO SCH ×3 (10:00→22:35)
[2022-11-28] MEDS ORDERED: ENOXAPARIN SOD 40 MG/0.4 ML SYRINGE SC SCH (10:00)
[2022-11-28] MEDS: AZITHROMYCIN 500MG/ 250ML 250 ML IV SCH (11:22)
[2022-11-28] MEDS: cefTRIAXone 1GM/50ML D5W 50 ML IV SCH (11:22)
[2022-11-28] MEDS: PANTOPRAZOLE 40 MG TAB PO SCH (11:23)
[2022-11-28] MEDS: ALPRAZolam 0.5 MG TAB PO PRN (22:33)
[2022-11-29] VITALS (7 sets, daily range): BP systolic 94–124; BP diastolic 51–75
[2022-11-29] MEDS: IPRATROPIUM BROM 0.5 MG/2.5ML INH SOL NEB SCH ×6 (02:03→22:13)
[2022-11-29] MEDS: ALBUTEROL SULF 2.5 MG/0.5ML(0.5%) NEB SOLN NEB SCH ×6 (02:04→22:13)
[2022-11-29] MEDS: MORPHINE SULFATE INJ 2 MG/ml SYRG IV PRN ×5 (04:44→21:13)
[2022-11-29] MEDS: EMPAGLIFLOZIN 10 MG TAB PO SCH (06:49)
[2022-11-29] MEDS: methylPREDNISolone SOD SUCC 40 MG/ML VL IV SCH ×3 (06:52→21:17)
[2022-11-29] MEDS: FUROSEMIDE 20 MG/2 ML VIAL IV SCH ×2 (06:52→18:07)
[2022-11-29] MEDS: LEVOTHYROXINE SODIUM 50 MCG TAB PO SCH (06:58)
[2022-11-29] MEDS: cefTRIAXone 1GM/50ML D5W 50 ML IV SCH (08:53)
[2022-11-29] MEDS: SACUBITRIL-VALSARTAN 24mg/26mg TAB PO SCH (09:17)
[2022-11-29] MEDS: PANTOPRAZOLE 40 MG TAB PO SCH (09:17)
[2022-11-29] MEDS: CARVEDILOL 3.125 MG TAB PO SCH ×2 (09:32→21:22)
[2022-11-29] MEDS: AZITHROMYCIN 500MG/ 250ML 250 ML IV SCH (10:00)
[2022-11-29] MEDS ORDERED: ENOXAPARIN SOD 30 MG/0.3 ML SYRINGE SC ONE (10:30)
[2022-11-29 11:43] LABS: BUN/Creatinine Ratio 30.2 (10.0-20.0); Calcium 8.4 mg/dL (8.5-10.1); Magnesium 2.3 mg/dL (1.6-2.6); Potassium 3.6 mmol/L (3.5-5.1)
[2022-11-29] MEDS: ALPRAZolam 0.5 MG TAB PO PRN ×2 (12:52→22:31)
[2022-11-29] MEDS ORDERED: SACUBITRIL-VALSARTAN 24mg/26mg TAB PO SCH (22:00)
[2022-11-30] MEDS: IPRATROPIUM BROM 0.5 MG/2.5ML INH SOL NEB SCH ×6 (02:02→22:02)
[2022-11-30] MEDS: ALBUTEROL SULF 2.5 MG/0.5ML(0.5%) NEB SOLN NEB SCH ×6 (02:03→22:02)
[2022-11-30] MEDS: MORPHINE SULFATE INJ 2 MG/ml SYRG IV PRN ×4 (02:10→12:06)
[2022-11-30 05:00] VITALS: BP 124/66
[2022-11-30] MEDS: FUROSEMIDE 20 MG/2 ML VIAL IV SCH ×2 (06:37→18:20)
[2022-11-30] MEDS: EMPAGLIFLOZIN 10 MG TAB PO SCH (06:37)
[2022-11-30] MEDS: methylPREDNISolone SOD SUCC 40 MG/ML VL IV SCH ×3 (06:37→22:02)
[2022-11-30] MEDS: LEVOTHYROXINE SODIUM 50 MCG TAB PO SCH (06:38)
[2022-11-30 08:00] VITALS: BP 124/67
[2022-11-30] MEDS: cefTRIAXone 1GM/50ML D5W 50 ML IV SCH (08:56)
[2022-11-30] MEDS: ENOXAPARIN SOD 30 MG/0.3 ML SYRINGE SC SCH (08:57)
[2022-11-30] MEDS: PANTOPRAZOLE 40 MG TAB PO SCH (08:57)
[2022-11-30] MEDS: AZITHROMYCIN 500MG/ 250ML 250 ML IV SCH (08:58)
[2022-11-30 09:00] VITALS: BP 106/63
[2022-11-30] MEDS: DOCUSATE SOD 100 MG CAP PO PRN (09:08)
[2022-11-30] MEDS: CARVEDILOL 3.125 MG TAB PO SCH ×2 (12:06→22:00)
[2022-11-30] MEDS ORDERED: ALPRAZolam 0.5 MG TAB PO PRN (12:15)
[2022-11-30] MEDS ORDERED: FINASTERIDE 5 MG TAB PO ONE (12:15)
[2022-11-30 13:00] VITALS: BP 130/67
[2022-11-30] MEDS ORDERED: MORPHINE SULFATE 10 MG/5 ML ORAL SOLN PO PRN (13:00)
[2022-11-30] MEDS: GABAPENTIN 300 MG CAP PO SCH ×2 (13:35→21:53)
[2022-11-30] MEDS: PRIMIDONE 50 MG TAB PO SCH ×2 (13:35→21:53)
[2022-11-30 16:46] VITALS: BP 107/65
[2022-11-30] MEDS ORDERED: TAMSULOSIN HYDROCHLORIDE 0.4 MG CAP PO SCH (18:00)
[2022-11-30] MEDS: MIDODRINE HCL 10 MG TAB PO SCH (18:00)
[2022-11-30] MEDS: FERROUS SULFATE 325mg EC TAB PO SCH (18:19)
[2022-11-30] MEDS: SUCRALFATE 1 GM TAB PO SCH (18:19)
[2022-11-30] MEDS: buPROPion HCL 75 MG TAB PO SCH (18:19)
[2022-11-30] MEDS: MORPHINE SULFATE 10 MG/5 ML ORAL SOLN PO PRN (20:46)
[2022-11-30 22:00] VITALS: BP 99/57
[2022-11-30] MEDS ORDERED: ATORVASTATIN 20 MG TAB PO SCH (22:00)
[2022-11-30] MEDS: SACUBITRIL-VALSARTAN 24mg/26mg TAB PO SCH (22:00)
[2022-11-30] MEDS ORDERED: SERTRALINE HCL 50 MG TAB PO SCH ×2 (22:00)
[2022-12-01] MEDS: ALBUTEROL SULF 2.5 MG/0.5ML(0.5%) NEB SOLN NEB SCH ×4 (01:54→14:00)
[2022-12-01] MEDS: IPRATROPIUM BROM 0.5 MG/2.5ML INH SOL NEB SCH ×4 (01:54→14:00)
[2022-12-01] MEDS: MORPHINE SULFATE 10 MG/5 ML ORAL SOLN PO PRN ×4 (02:29→14:48)
[2022-12-01 05:00] VITALS: BP 110/58
[2022-12-01 05:52] LABS: Basophils # (auto) 0 10 ^3/uL (0-0.2); Basophils % (auto) 0.1 % (0.0-2.0); Eosinophils # (auto) 0 10 ^3/uL (0-0.8); Eosinophils % (auto) 0.2 % (0.0-7.0); Hematocrit 34.3 % (41.0-53.0); Hemoglobin 11.8 g/dL (13.5-17.5); Lymphocytes # (auto) 0.8 10 ^3/uL (0.4-5.4); Lymphocytes % (auto) 15.2 % (10.0-50.0); Mean Corpuscular Hemoglobin 30.9 pg (28.0-32.0); Mean Corpuscular Hgb Conc. 34.4 g/dL (32.0-36.0); Mean Corpuscular Volume 89.7 fL (80.0-100.0); Monocytes # (auto) 0.5 10 ^3/uL (0-1.3); Monocytes % (auto) 9.1 % (0.0-12.0); Neutrophils % (auto) 75.4 % (37.0-80.0); Nucleated Red Blood Cells % 0.1 %; Red Blood Cells 3.82 10^6/uL (4.5-5.90); Red Cell Distribution Width 14.1 % (11.8-14.3); White Blood Cell 5.2 10^3/uL (4.4-10.8)
[2022-12-01] MEDS: MIDODRINE HCL 10 MG TAB PO SCH ×3 (06:00→12:42)
[2022-12-01] MEDS: GABAPENTIN 300 MG CAP PO SCH ×2 (06:03→14:13)
[2022-12-01] MEDS: PRIMIDONE 50 MG TAB PO SCH ×2 (06:03→14:14)
[2022-12-01] MEDS: EMPAGLIFLOZIN 10 MG TAB PO SCH (06:04)
[2022-12-01] MEDS: buPROPion HCL 75 MG TAB PO SCH (06:06)
[2022-12-01 06:10] LABS: Potassium 3.6 mmol/L (3.5-5.1)
[2022-12-01] MEDS: SUCRALFATE 1 GM TAB PO SCH ×2 (06:12→12:42)
[2022-12-01] MEDS: FUROSEMIDE 20 MG/2 ML VIAL IV SCH (06:14)
[2022-12-01 06:15] LABS: Calcium 8.8 mg/dL (8.5-10.1)
[2022-12-01] MEDS: methylPREDNISolone SOD SUCC 40 MG/ML VL IV SCH ×2 (06:15→14:13)
[2022-12-01] MEDS: DOCUSATE SOD 100 MG CAP PO PRN (06:37)
[2022-12-01] MEDS ORDERED: LEVOTHYROXINE SODIUM 50 MCG TAB PO SCH ×2 (07:00)
[2022-12-01] MEDS ORDERED: LEVOTHYROXINE SODIUM 100 MCG TAB PO SCH (07:00)
[2022-12-01 08:30] VITALS: BP 91/53
[2022-12-01 08:46] VITALS: BP 91/53
[2022-12-01] MEDS: cefTRIAXone 1GM/50ML D5W 50 ML IV SCH (09:34)
[2022-12-01] MEDS: ENOXAPARIN SOD 30 MG/0.3 ML SYRINGE SC SCH (09:34)
[2022-12-01] MEDS: FERROUS SULFATE 325mg EC TAB PO SCH ×2 (09:34→12:42)
[2022-12-01] MEDS ORDERED: FINASTERIDE 5 MG TAB PO SCH (10:00)
[2022-12-01] MEDS ORDERED: PANTOPRAZOLE 40 MG TAB PO SCH (10:00)
[2022-12-01] MEDS ORDERED: MIDODRINE HCL PO SCH (10:00)
[2022-12-01] MEDS ORDERED: FORMOTEROL FUMARATE 20 MCG/2 ML NEB SCH (10:00)
[2022-12-01] MEDS: SACUBITRIL-VALSARTAN 24mg/26mg TAB PO SCH (10:00)
[2022-12-01] MEDS ORDERED: MULTIPLE VITAMINS W/ MINERALS TAB PO SCH (10:00)
[2022-12-01] MEDS: CARVEDILOL 3.125 MG TAB PO SCH (10:00)
[2022-12-01] MEDS ORDERED: FLUTICASONE PROP NASAL SPR 0.05 % (50MCG) 16GM SCH (10:00)
[2022-12-01] MEDS ORDERED: TIOTROPIUM IN SCH (10:00)
[2022-12-01] MEDS: AZITHROMYCIN 500MG/ 250ML 250 ML IV SCH (10:44)
[2022-12-01] MEDS ORDERED: DOXY-340 PO (12:15)
[2022-12-01] MEDS ORDERED: METH4PAK PO (12:15)
[2022-12-01 12:23] VITALS: BP 106/57
[2022-12-01 16:42] VITALS: BP 110/60
[2022-12-01] MEDS ORDERED: FURO1TAB33 PO ×2 (17:41)
== END 2022-12-01 19:00 | disposition home or self-care (01) | DRG 291 ==
LOC: EDBD 19:40 → ER 19:40 → TELE 11-25 05:30 → TELE-EAST 11-26 16:25
PROVIDERS: ADMIT Nurse Practitioner Family; ATTEND Internal Medicine Geriatric Medicine
DX: I11.0 Hypertensive heart disease with heart failure (principal); E43 Unspecified severe protein-calorie malnutrition; I50.43 Acute on chronic combined systolic (congestive) and diastolic (congestive) heart failure; J96.21 Acute and chronic respiratory failure with hypoxia; C34.90 Malignant neoplasm of unspecified part of unspecified bronchus or lung; D61.818 Other pancytopenia; E03.9 Hypothyroidism, unspecified; E83.51 Hypocalcemia; E78.5 Hyperlipidemia, unspecified; F32.A Depression, unspecified; F41.9 Anxiety disorder, unspecified; I48.91 Unspecified atrial fibrillation; K21.9 Gastro-esophageal reflux disease without esophagitis; M10.9 Gout, unspecified; Z20.822 Contact with and (suspected) exposure to COVID-19; Z68.21 Body mass index [BMI] 21.0-21.9, adult; I27.20 Pulmonary hypertension, unspecified; J43.9 Emphysema, unspecified; R31.9 Hematuria, unspecified; Z90.49 Acquired absence of other specified parts of digestive tract; Z87.891 Personal history of nicotine dependence
CPT/HCPCS: 36415; 36600; 71045; 71275; 74176; 76775; 80048; 80053; 80202; 81001; 82140; 82805; 82962; 83605; 83735; 83880; 84154; 84443; 84484; 85025; 87040; 87086; 87426; 87804; 93306; 94640; 96365; 96366; 96368; 96375; 97110; 97116; 97163; 97530; 99291; G0378; J0696; J1100; J2405; J2543

== ENCOUNTER 2022-12-12 21:52 | Inpatient (IN) | payer OTHER ==
[~2022-12-12] VITALS: Ht 172.7 cm; Wt 65.2 kg
[~2022-12-12 21:52] MED LIST changes: -ASPI-325 PO; -ASPI1CHW15 PO; -CALC600T16 PO; -CHOL1TAB22 PO; -CYAN100023 PO; -DOX100T GT; +DOXY-340 PO; +FURO1TAB33 PO; -IPRASOL39 NEB; -LEV150T PO; -MAGN400T23 PO; -OXYC10TA44 PO; -RANI-226 PO; +SERT-160 PO; -SERT50TA PO; -SILD50TA42 PO; -TRAZ100T3 PO; +[UNRECOGNIZED DRUG - CODE] PO; -[UNRECOGNIZED DRUG - CODE] PO
[2022-12-12] MEDS ORDERED: ASPirin 325 MG TAB ONE (22:30)
[2022-12-12] MEDS ORDERED: methylPREDNISolone SOD SUCC 125 MG/2 ML VL IV ONE (22:30)
[2022-12-12] MEDS ORDERED: CLOPIDOGREL BISULFATE 75 MG TAB PO ONE (22:30)
[2022-12-12] MEDS ORDERED: CLOPIDOGREL BISULFATE 75 MG TAB ONE ×2 (22:30→22:32)
[2022-12-12] MEDS ORDERED: ASPirin 325 MG TAB PO ONE (22:30)
[2022-12-12 22:47] LABS: Basophils # (auto) 0 10 ^3/uL (0-0.2); Basophils % (auto) 0.4 % (0.0-2.0); Eosinophils # (auto) 0.1 10 ^3/uL (0-0.8); Eosinophils % (auto) 0.7 % (0.0-7.0); Hematocrit 28.4 % (41.0-53.0); Hemoglobin 9.5 g/dL (13.5-17.5); Lymphocytes # (auto) 0.8 10 ^3/uL (0.4-5.4); Lymphocytes % (auto) 9.2 % (10.0-50.0); Mean Corpuscular Hemoglobin 31.2 pg (28.0-32.0); Mean Corpuscular Hgb Conc. 33.6 g/dL (32.0-36.0); Mean Corpuscular Volume 92.7 fL (80.0-100.0); Monocytes # (auto) 0.5 10 ^3/uL (0-1.3); Monocytes % (auto) 5.3 % (0.0-12.0); Neutrophils # (auto) 7.6 10 ^3/uL (1.6-8.6); Neutrophils % (auto) 84.4 % (37.0-80.0); Nucleated Red Blood Cells % 0.2 %; Red Blood Cells 3.06 10^6/uL (4.5-5.90); Red Cell Distribution Width 15.3 % (11.8-14.3)
[2022-12-12] MEDS ORDERED: IODIXANOL 320MG/ML 100ML BTL IV ONE (22:53)
[2022-12-12] MEDS ORDERED: LIDOCAINE 2%HCL (LOCAL ANESTH.) INJ 20ML MDV ONE (22:53)
[2022-12-12 23:04] LABS: Albumin 2.7 g/dL (3.4-5.0); Calcium 8.2 mg/dL (8.5-10.1)
[2022-12-12 23:07] LABS: Bilirubin, Total 0.4 mg/dL (0.2-1.0); Total Protein 6.8 g/dL (6.4-8.2)
[2022-12-12] MEDS ORDERED: VERAPAMIL 2.5MG/ML INJ 2ML VIAL IV ONE (23:14)
[2022-12-12] MEDS ORDERED: ATROPINE SULF 1 MG/10ml SYR ONE (23:17)
[2022-12-12] MEDS ORDERED: HEPARIN SODIUM (PORCINE) 5000 UNITS/ML 1ML VIAL ONE (23:18)
[2022-12-12 23:48] VITALS: BP 124/59
[2022-12-12 23:57] VITALS: BP 128/62
[2022-12-13] VITALS (12 sets, daily range): BP systolic 96–129; BP diastolic 49–65
[2022-12-13] MEDS ORDERED: MORPHINE SULFATE INJ 2 MG/ml SYRG IV PRN
[2022-12-13] MEDS ORDERED: NITROGLYCERIN 0.4 MG SL TAB SL PRN
[2022-12-13] MEDS ORDERED: FURO1TAB33 PO (16:11)
[2022-12-13] MEDS ORDERED: MORPHINE SULF 15mg ER tab PO PRN (16:15)
[2022-12-13] MEDS: MORPHINE SULFATE INJ 2 MG/ml SYRG IV PRN ×2 (17:34→23:48)
[2022-12-13] MEDS: methylPREDNISolone SOD SUCC 40 MG/ML VL IV SCH (21:19)
[2022-12-13] MEDS: SERTRALINE HCL 50 MG TAB PO SCH (21:19)
[2022-12-13] MEDS: PRIMIDONE 50 MG TAB PO SCH (21:20)
[2022-12-13] MEDS: TAMSULOSIN HYDROCHLORIDE 0.4 MG CAP PO SCH (21:20)
[2022-12-13] MEDS: GABAPENTIN 300 MG CAP PO SCH (21:20)
[2022-12-13] MEDS: BUDESONIDE (INHALATION) 0.5 MG/2 ML NEB NEB SCH (21:26)
[2022-12-13] MEDS ORDERED: BUPROPION HCL PO SCH (22:00)
[2022-12-13] MEDS: ALPRAZolam 0.5 MG TAB PO PRN (23:37)
[2022-12-14] MEDS: ALBUTEROL SULF 2.5 MG/0.5ML(0.5%) NEB SOLN NEB PRN ×3 (02:21→21:59)
[2022-12-14] MEDS: IPRATROPIUM BROM 0.5 MG/2.5ML INH SOL NEB PRN ×3 (02:21→21:59)
[2022-12-14 05:00] VITALS: BP 106/44
[2022-12-14] MEDS: GABAPENTIN 300 MG CAP PO SCH ×3 (06:18→21:16)
[2022-12-14] MEDS: LEVOTHYROXINE SODIUM 100 MCG TAB PO SCH (06:18)
[2022-12-14] MEDS: PRIMIDONE 50 MG TAB PO SCH ×3 (06:18→21:16)
[2022-12-14] MEDS: MORPHINE SULFATE INJ 2 MG/ml SYRG IV PRN ×4 (06:34→21:33)
[2022-12-14] MEDS ORDERED: PANTOPRAZOLE 40 MG TAB PO SCH (07:00)
[2022-12-14 10:04] VITALS: BP 135/55
[2022-12-14] MEDS: BUDESONIDE (INHALATION) 0.5 MG/2 ML NEB NEB SCH ×2 (11:05→21:59)
[2022-12-14] MEDS: methylPREDNISolone SOD SUCC 40 MG/ML VL IV SCH ×2 (11:18→21:16)
[2022-12-14] MEDS: CEFTRIAXONE SODIUM 2 GM in D5W 5% 100 ML IV SCH (11:18)
[2022-12-14] MEDS: MIDODRINE HCL 10 MG TAB PO SCH (11:18)
[2022-12-14] MEDS: SERTRALINE HCL 50 MG TAB PO SCH ×2 (11:18→21:16)
[2022-12-14] MEDS: FUROSEMIDE 20 MG TAB PO SCH (11:19)
[2022-12-14] MEDS: AZITHROMYCIN 500MG/ 250ML 250 ML IV SCH (12:56)
[2022-12-14 13:16] VITALS: BP 132/64
[2022-12-14 16:40] VITALS: BP 114/69
[2022-12-14] MEDS: TAMSULOSIN HYDROCHLORIDE 0.4 MG CAP PO SCH (21:16)
[2022-12-14 22:00] VITALS: BP 121/53
[2022-12-14] MEDS: ALPRAZolam 0.5 MG TAB PO PRN (23:08)
[2022-12-15] MEDS: MORPHINE SULFATE INJ 2 MG/ml SYRG IV PRN ×4 (02:01→14:59)
[2022-12-15 05:00] VITALS: BP 140/67
[2022-12-15] MEDS: BUDESONIDE (INHALATION) 0.5 MG/2 ML NEB NEB SCH (06:29)
[2022-12-15] MEDS: ALBUTEROL SULF 2.5 MG/0.5ML(0.5%) NEB SOLN NEB PRN ×2 (06:29→16:34)
[2022-12-15] MEDS: GABAPENTIN 300 MG CAP PO SCH ×2 (06:36→14:58)
[2022-12-15] MEDS: PRIMIDONE 50 MG TAB PO SCH ×2 (06:36→14:57)
[2022-12-15] MEDS: LEVOTHYROXINE SODIUM 100 MCG TAB PO SCH (06:36)
[2022-12-15 08:00] VITALS: BP 117/66
[2022-12-15 08:30] VITALS: BP 100/68
[2022-12-15] MEDS: MIDODRINE HCL 10 MG TAB PO SCH (10:10)
[2022-12-15] MEDS: AZITHROMYCIN 500MG/ 250ML 250 ML IV SCH (10:10)
[2022-12-15] MEDS: methylPREDNISolone SOD SUCC 40 MG/ML VL IV SCH (10:11)
[2022-12-15] MEDS: SERTRALINE HCL 50 MG TAB PO SCH (10:11)
[2022-12-15] MEDS: FUROSEMIDE 20 MG TAB PO SCH (10:11)
[2022-12-15] MEDS: CEFTRIAXONE SODIUM 2 GM in D5W 5% 100 ML IV SCH (10:12)
[2022-12-15 12:30] VITALS: BP 107/57
[2022-12-15] MEDS ORDERED: PRED20TA2 PO (13:27)
[2022-12-15] MEDS ORDERED: DOXY-340 PO (13:27)
[2022-12-15] MEDS ORDERED: ASPI1TAB20 PO (13:28)
[2022-12-15 15:44] VITALS: BP 107/57
[2022-12-15] MEDS: IPRATROPIUM BROM 0.5 MG/2.5ML INH SOL NEB PRN (16:34)
== END 2022-12-15 19:20 | disposition home or self-care (01) | DRG 280 ==
LOC: ER 21:52 → EDBD 21:52 → TELE-EAST 23:58
PROVIDERS: ADMIT Internal Medicine Interventional Cardiology; ATTEND Internal Medicine
PROC: 4A023N7 Measurement of Cardiac Sampling and Pressure, Left Heart, Percutaneous Approach (ICD-10-PCS; principal; 2022-12-13)
PROC: B2111ZZ Fluoroscopy of Multiple Coronary Arteries using Low Osmolar Contrast (ICD-10-PCS; 2022-12-13)
PROC: B2151ZZ Fluoroscopy of Left Heart using Low Osmolar Contrast (ICD-10-PCS; 2022-12-13)
DX: I21.3 ST elevation (STEMI) myocardial infarction of unspecified site (principal); I50.23 Acute on chronic systolic (congestive) heart failure; J18.9 Pneumonia, unspecified organism; J96.21 Acute and chronic respiratory failure with hypoxia; C34.90 Malignant neoplasm of unspecified part of unspecified bronchus or lung; J44.0 Chronic obstructive pulmonary disease with (acute) lower respiratory infection; J44.1 Chronic obstructive pulmonary disease with (acute) exacerbation; J98.11 Atelectasis; I25.10 Atherosclerotic heart disease of native coronary artery without angina pectoris; D63.8 Anemia in other chronic diseases classified elsewhere; G89.4 Chronic pain syndrome; I11.0 Hypertensive heart disease with heart failure; K21.9 Gastro-esophageal reflux disease without esophagitis; N40.1 Benign prostatic hyperplasia with lower urinary tract symptoms; Z20.822 Contact with and (suspected) exposure to COVID-19; R33.8 Other retention of urine; F32.A Depression, unspecified; F41.9 Anxiety disorder, unspecified; Z90.49 Acquired absence of other specified parts of digestive tract; Z87.891 Personal history of nicotine dependence; Z82.49 Family history of ischemic heart disease and other diseases of the circulatory system; Z82.5 Family history of asthma and other chronic lower respiratory diseases; Z83.3 Family history of diabetes mellitus; Z85.118 Personal history of other malignant neoplasm of bronchus and lung; Z81.8 Family history of other mental and behavioral disorders; Z79.899 Other long term (current) drug therapy
CPT/HCPCS: 36415; 71045; 80053; 83605; 83880; 84484; 85025; 87040; 87081; 87426; 93005; 93458; 94640; 96374; 96375; 99152; C1887; G0378; J0696; J7060; Q9967

== ENCOUNTER 2025-08-06 07:34 | Inpatient (IN) | payer OTHER ==
[~2025-08-06] VITALS: Ht 172.7 cm; Wt 62.4 kg
[2025-08-06] VITALS (10 sets, daily range): BP systolic 133–150; BP diastolic 63–88; PULSE 78–97; RESP 16–20; TEMP 98–100.3; O2SAT 81–98
[~2025-08-06 07:34] MED LIST changes: +ASPI1TAB20 PO; -DOXY-340 PO; +DOXY1CAP57 PO; +GABA-1250 PO; -GABA300C10 PO; -METH4PAK PO; -MIDO5TAB3 PO; +MIDO5TAB4 PO; +PRED20TA2 PO; -SUCR1TAB22 PO; +SUCR1TAB31 PO; -TAM04C PO; +TAMS-35 PO
--- NOTE | 2025-08-06 07:51 | ED.PDOC ---
History of Present Illness HPI Comments 69-year-old male brought by paramedics from home because shortness a breath for the past few days progressively getting worse. Family called the paramedics because he had a hard time breathing even though he was on oxygen. He was 85% on 10 L. He does have a history of lung cancer hypertension congestive heart failure. Heart rate was 86. Patient did have a breathing treatment prior to coming to the ER. Stated that he has stopped smoking few years ago. Denies any other symptoms. Chief Complaint: Shortness of Breath Time Seen by MD: 07:39 Primary Care Provider: UNKNOWN Reviewed Notes: Nurses Notes, Medications, Allergies Allergies: Coded Allergies: No Known Drug Allergy (Unverified Allergy, Unknown, 07/31/15) Home Meds Active Scripts Aspirin (Aspir-81) 81 Mg Tab, 1 TAB PO DAILY, #30 TAB 5 Refills Prov:LAMAR EDWARD MD 12/15/22 Prednisone (Prednisone) 20 Mg Tab, 40 MG PO DAILY for 5 Days, #10 MG Prov:LAMAR EDWARD MD 12/15/22 Doxycycline Monohydrate (Doxycycline Monohydrate) 100 Mg Cap, 1 CAP PO BID, #10 CAP Prov:LAMAR EDWARD MD 12/15/22 Furosemide (Lasix) 20 Mg Tb, 1 TAB PO DAILY, #30 TAB 5 Refills Prov:LAMAR EDWARD MD 12/13/22 Reported Medications Sertraline Hcl (Sertraline Hcl) 100 Mg Tab, 1 TAB PO BID 11/26/22 Levothyroxine Sodium (Levothyroxine Sodium) 300 Mcg Tab, 1 TAB PO DAILY 11/26/22 Formoterol Fumarate Dihydrate (Formoterol Fumarate) 20 Mcg/2 Ml Neb, 2 ML NEB DAILY for COPD 05/08/22 Albuterol Sulfate (Albuterol Sulfate) 0.083 % Neb, 1 UNIT NEB Q4HR PRN for SHORTNESS OF BREATH 05/08/22 Morphine Sulfate (Morphine Sulfate Cr) 15 Mg Tab, 1 TAB PO Q6HR PRN for PAIN SCALE 7 THRU 10 11/08/16 Sucralfate (CARAFATE) 1 Gm Tab, 1 TAB PO TID for ULCER PREVENTION 11/08/16 Budesonide (Inhalation) (Budesonide) 0.5MG/2 [place], 1 VIAL NEB BID for COPD 11/08/16 Tamsulosin Hcl (Flomax) 0.4 Mg Cap, 1 CAP PO HS for BPH 10/20/15 Pantoprazole Sodium Sesquihydr (Protonix) 40 Mg Tab, 1 TAB PO QAM for GERD 10/20/15 Albuterol Sulfate (VENTOLIN MDI) 90 Mcg Ih, 2 PUFF IN Q6HR PRN for SHORTNESS OF BREATH 07/31/15 Primidone (MYSOLINE TABLET) 50 Mg Tb, 1 TAB PO TID for FINE TREMORS 07/31/15 Midodrine Hcl (Midodrine Hcl) 5 Mg Tab, 1 TAB PO DAILY for HYPOTENSION 07/31/15 Gabapentin (Gabapentin) 300 Mg Cap, 1 CAP PO TID for NEUROPATHY 07/31/15 Fluticasone Propionate (FLONASE SPRAY) 50 Mcg Sp, 2 SPRAYS NA DAILY for ALLERGIES 07/31/15 Atorvastatin Calcium (Lipitor) 10 Mg Tab, 1 TAB PO HS for HIGH CHOLESTEROL 07/31/15 Multiple Vitamins W/ Minerals (Centrum Silver) Silver Tab, 1 TAB PO DAILY for SUPPLEMENT 05/20/14 Tizanidine Hydrochloride (Zanaflex) 4 Mg Cap, 1 CAP PO TID PRN for MUSCLE SPASMS 05/20/14 Ferrous Sulfate (Iron Supplement) 325 Mg Tab, 1 TAB PO TIDWM for ANEMIA 12/18/12 Tiotropium [place] Monohydrate (Spiriva Handihaler) Handihlr Cap, 1 CAP INH DAILY for COPD 12/18/12 Bupropion Hcl (Bupropion Hcl Sr) 150 Mg Tab, 1 TAB PO BID for DEPRESSION 12/18/12 Alprazolam (Alprazolam) 0.5 Mg Tab, 1 TAB PO BID PRN for ANXIETY 12/18/12 Information Source: Patient, Emergency Med Personnel Mode of Arrival: EMS Severity: Moderate Timing: Days Duration: Since onset Past Medical History PAST MEDICAL HISTORY: Anemia, Anxiety, Asthma, Cancer, COPD, Depression, GERD, Gout, HTN, Thyroid Surgical History: Appendectomy, Cholecystectomy Family History Family History: Reviewed,noncontributory to illness Social History Smoker: Non-Smoker, Quit Greater Than 1 Year Alcohol: Denies ETOH Use Drugs: Denies Drug Use Lives In: Home Constitutional: denies: chills, diaphoresis, fatigue, fever, malaise, sweats, weakness, others EENTM: denies: blurred vision, double vision, ear bleeding, ear discharge, ear drainage, ear pain, ear ringing, eye pain, eye redness, hearing loss, mouth pain, mouth swelling, nasal discharge, nose bleeding, nose congestion, nose pain, photophobia, tearing, throat pain, throat swelling, voice changes, others Respiratory: reports: shortness of breath; denies: cough, hemoptysis, orthopnea, SOB at rest, SOB with excertion, stridor, wheezing, others Cardiovascular: denies: chest pain, dizzy spells, diaphoresis, Dyspnea on exertion, edema, irregular heart beat, left arm pain, lightheadedness, palpitations, PND, syncope, others Gastrointestinal: denies: abdomen distended, abdominal pain, blood streaked bowels, constipated, diarrhea, dysphagia, difficulty swallowing, hematemesis, melena, nausea, poor appetite, poor fluid intake, rectal bleeding, rectal pain, vomiting, others Genitourinary: denies: burning, dysuria, flank pain, frequency, hematuria, incontinence, penile discharge, penile sore, pain, testicle pain, testicle swelling, urgency, others Neurological: denies: dizziness, fainting, headache, left sided numbness, left sided weakness, numbness, paresthesia, pre-existing deficit, right sided numbness, right sided weakness, seizure, speech problems, tingling, tremors, weakness, others Musculoskeletal: denies: back pain, gout, joint pain, joint swelling, muscle pain, muscle stiffness, neck pain, others Integumetry: denies: bruises, change in color, change in hair/nails, dryness, laceration, lesions, lumps, rash, wounds, others Allergic/Immunocompromised: denies: Difficulty Healing, Frequent Infections, Hives, Itching, others Hematologic/Lymphatic: denies: anemia, blood clots, easy bleeding, easy bruising, swollen glands, others Endocrine: denies: excessive hunger, excessive sweating, excessive thirst, excessive urination, flushing, intolerance to cold, intolerance to heat, unexplained weight gain, unexplained weight loss, others Psychiatric: denies: anxiety, bipolar disorder, depression, hopeless, panic disorder, schizophrenia, sleepless, suicidal, others Physical Exam General Appearance: Moderate Distress HEENT: Normal ENT Inspection, Pharynx Normal, TMs Normal Neck: Full Range of Motion, Non-Tender, Normal, Normal Inspection Respiratory: No Accessory Muscle Use, Respiratory Distress, Wheezing Cardiovascular: No Edema, No JVD, No Murmur, No Gallop, Normal Peripheral Pulses, Regular Rate/Rhythm Breast Exam: Deferred Gastrointestinal: No Organomegaly, Non Tender, No Pulsatile Mass, Normal Bowel Sounds, Soft Genitalia: Deferred Pelvic: Deferred Rectal: Deferred Extremities: No calf tenderness, No pedal edema Musculoskeletal : Apperance: Normal Neurologic: Alert, No Motor Deficits, No Sensory Deficits Cerebellar Function: NOT DONE Reflexes: NOT DONE Skin: Normal Color Peripheral Pulses: 3+ Radial (R), 3+ Radial (L) Lymphatic: No Adenopathy Was a procedure done? Was a procedure done?: No EKG EKG : Pulse Rate (adult): 86 Cardiac Rhythm: NSR Differential Dx Considerations may include: Congestive heart failure Electrolyte imbalance X-Ray, Labs, Meds, VS Vital Signs Date Time Temp Pulse Resp B/P (MAP) Pulse Ox O2 Delivery O2 Flow Rate FiO2 08/06/25 07:51 86 08/06/25 07:42 97.3 85 24 179/89 88 97.3 Patient alert. Placed on oxygen. Complaining of shortness a breath. Had a breathing treatment. Moving all extremities. Was given Lasix. Explained to the patient that he will be admitted. Continue monitoring. Time of 1ST Reevaluation: 07:48 Reevaluation 1ST: Unchanged Patient Education/Counseling: Diagnosis, Treatment, Prognosis Family Education/Counseling: No Family Present SEPSIS Sepsis Screen Physician Orders Troponin-I Hs (08/06/25 07:51) Complete Blood Count (08/06/25 07:51) B-Type Natriuretic Peptide (08/06/25 07:51) Chest Portable (08/06/25 07:51) Urinalysis (08/06/25 07:51) Basic Metabolic Panel (08/06/25 07:51) Troponin-I Hs (08/06/25 08:51) Troponin-I Hs (08/06/25 10:51) Furosemide Injection (Lasix Injection) (08/06/25 08:00) Methylprednisolone Sod Succ (Solu Medrol (08/06/25 08:00) Ceftriaxone 1gm/50ml (Rocephin) (08/06/25 08:00) Azithromycin 500mg/250ml (Zithromax 500m (08/06/25 08:00) Vital Signs Date Time Temp Pulse Resp B/P (MAP) Pulse Ox O2 Delivery O2 Flow Rate FiO2 08/06/25 07:51 86 08/06/25 07:42 97.3 85 24 179/89 88 97.3 Departure 1 Departure Time of Disposition: 07:50 Impression: Primary Impression: Acute on chronic respiratory failure Qualified Codes: J96.21 - Acute and chronic respiratory failure with hypoxia Additional Impressions: COPD exacerbation Congestive heart failure Qualified Codes: I50.43 - Acute on chronic combined systolic (congestive) and diastolic (congestive) heart failure Disposition: ADMITTED INPATIENT Admit to: ICU Condition: Guarded Critical Care Note Critical Care Time?: Yes (90 min-critical care time only) Stability Stability form required: No Heart Score Heart Score: Heart Score Response (Comments) Value History Slightly Suspicious 0 EKG Normal 0 Age >65 2 Risk Factors >3 or Hx ASHD 2 Troponin Normal limit 0 Total 4 SYEDA JONES MD Aug 06, 2025 07:51
[2025-08-06] MEDS: methylPREDNISolone SOD SUCC 125 MG/2 ML VL IV ONE (08:31)
--- NOTE | 2025-08-06 08:34 | DVH ---
XY CHEST PORTABLE, HISTORY: sob COMPARISON: XY CHEST PORTABLE on DOS: 12/12/22, XY CHEST PORTABLE on DOS: 11/24/22, CXR1 on DOS: 05/05/22 XY CHEST PORTABLE on DOS: 12/12/22, XY CHEST PORTABLE on DOS: 11/24/22, CXR1 on DOS: 05/05/22 TECHNICAL DATA: 1 view of the chest was obtained. FINDINGS: Lines and tubes: None Cardiomediastinal silhouette: normal Pulmonary vasculature: normal Lung expansion: normal Lung airspace: multifocal patchy airspace opacity. Lung interstitium: normal Pleura: normal Pneumothorax: no Bones: Unremarkable Other: no IMPRESSION: Multifocal patchy airspace opacity could be pneumonia.
[2025-08-06 08:37] LABS: Hematocrit 32.3 % (41.0-53.0); Hemoglobin 10.9 g/dL (13.5-17.5); Mean Corpuscular Hemoglobin 32.0 pg (28.0-32.0); Mean Corpuscular Volume 94.4 fL (80.0-100.0); Nucleated Red Blood Cells % 0.0 %
[2025-08-06 08:46] LABS: Chloride 101 mmol/L (98-107); Potassium 4.0 mmol/L (3.5-5.1); Sodium 138 mmol/L (136-145)
[2025-08-06 08:47] LABS: Anion Gap 9 (5-15); Calcium 9.5 mg/dL (8.7-10.4); Carbon Dioxide 28 mmol/L (20-31)
[2025-08-06 08:52] LABS: BUN/Creatinine Ratio 12.1 (10.0-20.0); Blood Urea Nitrogen 7 mg/dL (9-23); Glucose 105 mg/dL (74-106)
[2025-08-06 09:25] LABS: COVID19 ANTIGEN SOFIA FIA NEGATIVE (NEGATIVE)
[2025-08-06] MEDS: FUROSEMIDE 40 MG/4 ML VIAL IV ONE (09:33)
[2025-08-06] MEDS: MORPHINE SULFATE INJ 2 MG/ml SYRG IV ONE (09:33)
[2025-08-06] MEDS: ONDANSETRON HCL 4 MG/2 ML VIAL IV ONE (09:34)
[2025-08-06] MEDS: AZITHROMYCIN 500MG/250ML 250 ML IV ONE (09:34)
[2025-08-06 10:44] LABS: Urine Protein, UAD Negative (Negative)
[2025-08-06] MEDS ORDERED: NITROGLYCERIN 0.4 MG SL TAB SL PRN (12:30)
[2025-08-06] MEDS ORDERED: MORPHINE SULFATE 4 MG/ML SYR/VIAL IV PRN (12:45)
[2025-08-06] MEDS ORDERED: MORPHINE SULF 15mg ER tab PO PRN (13:30)
[2025-08-06] MEDS ORDERED: TIZANIDINE HYDROCHLORIDE 4 MG PO PRN (13:30)
[2025-08-06] MEDS ORDERED: MIDO5TAB22 PO (13:36)
[2025-08-06] MEDS ORDERED: BUPR-346 PO (13:36)
[2025-08-06] MEDS ORDERED: ARIP10TA29 PO (13:36)
[2025-08-06] MEDS ORDERED: FIN5T PO (13:36)
[2025-08-06] MEDS ORDERED: ATOR20TA50 PO (13:36)
[2025-08-06] MEDS ORDERED: LEVO25TA6 PO (13:36)
--- NOTE | 2025-08-06 13:36 | DVHHP2 ---
History of Present Illness Reason for Visit: Shortness of breath History of Present Illness Bandar Wagoner is a 69-year-old male with past medical history of hypertension, CHF, lung cancer, COPD, anxiety, depression, hypothyroidism, and asthma, who came to the hospital for shortness of breath. Patient has an extensive pulmonary history of lung cancer, has been in remission for 2 years, COPD, and home oxygen use. He began getting short of breath and his recognized the signs and symptoms and started him on PO steroids and antibiotics that their primary care provider gives them for exacerbations. This morning he continued to worsen despite the treatment, he began to require more oxygen, so his called EMS and had him brought to the hospital. Cardiovascular: CHF, HTN Pulmonary: Asthma, COPD Past Surgical History: Appendectomy, Total hip replacement (left) Smoke: Quit (2011) ALCOHOL: none Lives: with Family Domestic Violence: Neg Review of Systems Constitutional: No: Fever, Chills, Sweats, Weakness, Malaise, Other Eyes: No: Pain, Vision change, Conjunctivae inflammation, Eyelid inflammation, Other, Redness ENT: No: Ear pain, Ear discharge, Nose pain, Nose discharge, Nose congestion, Mouth pain, Mouth swelling, Throat pain, Throat swelling, Other Respiratory: Cough, Shortness of breath, SOB with excertion, Wheezing, Sputum; No: Dry, Hemoptysis, Pleuritic Pain, Wheezing, Other Cardiovascular: No: Chest Pain, Palpitations, Orthopnea, Paroxysmal Noc. Dyspnea, Edema, Lt Headedness, Other Gastrointestinal: No: Nausea, Vomiting, Abdominal Pain, Diarrhea, Constipation, Melena, Hematochezia, Other Genitourinary: No Dysuria, No Frequency, No Incontinence, No Hematuria, No Retention, No Other Musculoskeletal: No: other, neck pain, shoulder pain, arm pain, back pain, hand pain, leg pain, foot pain Skin: No: Rash, Lesions, Jaundice, Bruising, Other Neurological: No: Weakness, Numbness, Incoordination, Change in speech, Confusion, Seizures, Other Allergies: Coded Allergies: No Known Drug Allergy (Unverified Allergy, Unknown, 07/31/15) Exam Vital Signs Vital Signs Date Time Temp Pulse Resp B/P (MAP) Pulse Ox O2 Delivery O2 Flow Rate FiO2 08/06/25 12:19 81 22 133/63 08/06/25 12:00 91 08/06/25 08:09 Simple Mask* 10 99 08/06/25 08:00 98.4 98.4 General Appearance: Alert, Oriented X3, Cooperative, moderate distress HEENT: Atraumatic, PERRLA Respiratory: Other (Diminished breath sounds) Cardiovascular: Regular rate, Normal S1, Normal S2 Abdominal: Normal bowel sounds, Soft, No tenderness, No hepatospenomegaly Extremities: No clubbing, No cyanosis, No edema Skin: No rashes, No breakdown, No significant lesion Neuro: Normal speech, Other (generalized weakness) Psych/Mental Status: Mental status NL, Mood NL Labs/Xrays Labs Test 08/06/25 10:57 08/06/25 10:28 08/06/25 08:45 08/06/25 08:44 Range/Units Troponin I High Sensitivity 31 </=54 ng/L Urine Color Light-yellow Yellow Urine Clarity Clear Clear Urine pH 7.0 5.0-9.0 Urine Specific [place] 1.011 1.001-1.035 Urine Protein Negative Negative Urine Ketones Negative Negative Urine Blood Negative Negative /uL Urine Nitrite Negative Negative Urine Bilirubin Negative Negative Urine Urobilinogen Normal Negative mg/dL Urine Leukocyte Esterase Negative Negative /uL Urine RBC 1 0 - 3 /hpf Urine Microscopic WBC < 1 0-3 /HPF Urine Squamous Epithelial Cells Few <5 /hpf Urine Bacteria None seen None Seen /hpf Urine Glucose Normal Normal mg/dL SARS-CoV-2 Antigen (Rapid) Negative NEGATIVE Influenza Type A Antigen Negative Negative Influenza Type B Antigen Positive Negative Test 08/06/25 08:00 Range/Units White Blood Count 6.8 4.4-10.8 10^3/uL Red Blood Count 3.42 L 4.5-5.90 10^6/uL Hemoglobin 10.9 L 13.5-17.5 g/dL Hematocrit 32.3 L 41.0-53.0 % Mean Corpuscular Volume 94.4 80.0-100.0 fL Mean Corpuscular Hemoglobin 32.0 28.0-32.0 pg Mean Corpuscular Hemoglobin Concent 33.9 32.0-36.0 g/dL Red Cell Distribution Width 14.4 H 11.8-14.3 % Platelet Count 200 140-450 10^3/uL Mean Platelet Volume 8.5 6.9-10.8 fL Neutrophils (%) (Auto) 78.6 37.0-80.0 % Lymphocytes (%) (Auto) 12.2 10.0-50.0 % Monocytes (%) (Auto) 7.4 0.0-12.0 % Eosinophils (%) (Auto) 1.4 0.0-7.0 % Basophils (%) (Auto) 0.4 0.0-2.0 % Neutrophils # (Auto) 5.3 1.6-8.6 10 ^3/uL Lymphocytes # (Auto) 0.8 0.4-5.4 10 ^3/uL Monocytes # (Auto) 0.5 0-1.3 10 ^3/uL Eosinophils # (Auto) 0.1 0-0.8 10 ^3/uL Basophils # (Auto) 0 0-0.2 10 ^3/uL Nucleated Red Blood Cells 0.0 % Sodium Level 138 136-145 mmol/L Potassium Level 4.0 3.5-5.1 mmol/L Chloride Level 101 98-107 mmol/L Carbon Dioxide Level 28 20-31 mmol/L Anion Gap 9 5-15 Blood Urea Nitrogen 7 L 9-23 mg/dL Creatinine 0.58 L 0.700-1.30 mg/dL Glomerular Filtration Rate Calc 104 >90 mL/min BUN/Creatinine Ratio 12.1 10.0-20.0 Serum Glucose 105 74-106 mg/dL Lactic Acid Level 1.4 0.4-2.0 mmol/L Calcium Level 9.5 8.7-10.4 mg/dL B-Type Natriuretic Peptide 198.69 0-100 pg/mL XY CHEST PORTABLE, FINDINGS: Lines and tubes: None Cardiomediastinal silhouette: normal Pulmonary vasculature: normal Lung expansion: normal Lung airspace: multifocal patchy airspace opacity. Lung interstitium: normal Pleura: normal Pneumothorax: no Bones: Unremarkable Other: no IMPRESSION: Multifocal patchy airspace opacity could be pneumonia. SEPSIS Sepsis Screen Date sepsis recognized/suspect: Aug 06, 2025 Time Sepsis recognized/suspect: 0800 Recent Procedure: No On Antibiotic Therapy: No Respiratory Rate >20: No Heart Rate >90: No Temp<36 C (96.8 F) or >38.3 C: No SBP <90 or MAP <65 mmHG: No New Acute Mental Status Change: No Is the patient on CPAP, BIPAP,: No Physician Orders Chest Portable (08/06/25 07:51) Blood Culture (08/06/25 08:05) Electrocardigram (08/06/25 10:55) Admit (08/06/25 12:16) Code Status (08/06/25 12:16) Hydrocodone-Acet 5/325mg Tab ([place] 5/32 (08/06/25 12:30) Ondansetron Hcl (Zofran) (08/06/25 12:30) Docusate Sodium Capsule (Colace Capsule) (08/06/25 12:30) Complete Blood Count (08/07/25 04:00) Comprehensive Metabolic Panel (08/07/25 04:00) Cardiac Diet-2gna,Lofat,Lochol (08/06/25 Lunch) Condition: Serious (08/06/25 12:16) Enoxaparin Sodium (Lovenox) (08/07/25 10:00) Acetaminophen Tablet (Tylenol Tablet) (08/06/25 12:30) Morphine Sulfate Injection (08/06/25 12:30) Nitroglycerin Sublingual (Ntrostat Subli (08/06/25 12:30) Morphine Sulfate Injection (08/06/25 12:30) Stat Ekg For Chest Pain (08/06/25 12:16) Vital Signs Date Time Temp Pulse Resp B/P (MAP) Pulse Ox O2 Delivery O2 Flow Rate FiO2 08/06/25 12:19 81 22 133/63 08/06/25 12:00 81 22 133/63 (86) 91 08/06/25 09:33 86 25 155/66 08/06/25 09:33 155/66 08/06/25 09:00 88 25 155/66 (95) 96 08/06/25 08:09 93 Simple Mask* 10 99 08/06/25 08:00 98.4 81 20 176/77 (110) 93 98.4 08/06/25 08:00 81 20 95 Simple Mask* 10 99 08/06/25 07:51 86 08/06/25 07:42 97.3 85 24 179/89 88 97.3 08/06/25 07:39 86 Laboratory Tests Test 08/06/25 08:00 Lactic Acid Level 1.4 mmol/L (0.4-2.0) White Blood Count 6.8 10^3/uL (4.4-10.8) Medications Medications Dose Ordered Sig/[place] Route Start Time Stop Time Status Last Admin Dose Admin Azithromycin 250 ml @ 125 mls/hr ONCE ONCE IV 08/06/25 08:00 08/06/25 09:59 DC 08/06/25 09:34 125 MLS/HR Ceftriaxone Sodium 50 ml @ 100 mls/hr ONCE ONCE IV 08/06/25 08:00 08/06/25 08:29 DC 08/06/25 08:32 100 MLS/HR Furosemide 40 mg ONCE ONCE IV 08/06/25 08:00 08/06/25 08:01 DC 08/06/25 09:33 40 MG Methylprednisolone Sodium Succinate 125 mg ONCE ONCE IV 08/06/25 08:00 08/06/25 08:01 DC 08/06/25 08:31 125 MG Morphine Sulfate 2 mg ONCE ONCE IV 08/06/25 09:30 08/06/25 09:31 DC 08/06/25 09:33 2 MG Ondansetron HCl 4 mg ONCE ONCE IV 08/06/25 09:30 08/06/25 09:31 DC 08/06/25 09:34 4 MG Assessment/Plan Assessment/Plan Assessment: Acute and chronic respiratory failure with hypoxia, COPD exacerbation, Hypertension, Hypothyroidism, Plan: Admit to Tele, IV antibiotics, IV steroids, Breathing treatments, Supplemental oxygen, Home medications reconciled, Plan discussed with: Patient, Spouse My Orders Orders - BOBBY HARRIS Procedure Category Date Status Time Admit ADMIT 08/06/25 Verified 12:16 Code Status CODE 08/06/25 Verified 12:16 Hydrocodone-Acet PHA 08/06/25 Verified 5/325mg Tab ([place] 12:30 Ondansetron Hcl PHA 08/06/25 Verified (Zofran) 12:30 Docusate Sodium PHA 08/06/25 Verified Capsule (Colace 12:30 Complete Blood Count LAB 08/07/25 Verified 04:00 Comprehensive LAB 08/07/25 Verified Metabolic Panel 04:00 Cardiac DIET 08/06/25 Verified Diet-2gna,Lofat,Lochol Lunch Condition: Serious TRAY 08/06/25 Verified 12:16 Enoxaparin Sodium PHA 08/07/25 Verified (Lovenox) 10:00 Acetaminophen Tablet PHA 08/06/25 Verified (Tylenol Tablet) 12:30 Morphine Sulfate PHA 08/06/25 Verified Injection 12:30 Nitroglycerin PHA 08/06/25 Verified Sublingual (Ntrostat 12:30 Morphine Sulfate PHA 08/06/25 Verified Injection 12:30 Stat Ekg For Chest TRAY 08/06/25 Verified Pain 12:16 Date of Service: Aug 06, 2025 Billing Provider: BOBBY HARRIS Common Visit Codes: [id number] INP/OBS CARE (HIGH) BOBBY HARRIS Aug 06, 2025 13:36
[2025-08-06] MEDS ORDERED: MONT-8 PO (16:38)
[2025-08-06] MEDS ORDERED: DOCU-94 PO (16:38)
[2025-08-06] MEDS ORDERED: PRIM125T PO (16:38)
[2025-08-06] MEDS ORDERED: LORA-1126 PO (16:38)
[2025-08-06] MEDS ORDERED: MORP1TAB14 PO (16:38)
[2025-08-06] MEDS ORDERED: CLON0.1T PO (16:38)
[2025-08-06] MEDS ORDERED: LACT10SO3 PO (16:38)
[2025-08-06] MEDS: SUCRALFATE 1 GM TAB PO SCH (16:47)
[2025-08-06] MEDS: MORPHINE SULFATE 4 MG/ML SYR/VIAL IV PRN (16:54)
[2025-08-06] MEDS: ALBUTEROL SULF 2.5 MG/0.5ML(0.5%) NEB SOLN NEB SCH (18:11)
[2025-08-06] MEDS: IPRATROPIUM BROM 0.5 MG/2.5ML INH SOL NEB SCH (18:11)
[2025-08-06] MEDS: methylPREDNISolone SOD SUCC 40 MG/ML VL IV SCH (21:17)
[2025-08-06] MEDS: TAMSULOSIN HYDROCHLORIDE 0.4 MG CAP PO SCH (21:18)
[2025-08-06] MEDS: SERTRALINE HCL 50 MG TAB PO SCH (21:19)
[2025-08-06] MEDS: PRIMIDONE 50 MG TAB PO SCH (22:00)
[2025-08-07] VITALS (16 sets, daily range): BP systolic 145–172; BP diastolic 68–87; PULSE 79–91; RESP 14–24; TEMP 98.1–99.4; O2SAT 95–100
[2025-08-07 05:27] LABS: Hematocrit 30.8 % (41.0-53.0); Hemoglobin 10.6 g/dL (13.5-17.5); Mean Corpuscular Hemoglobin 32.0 pg (28.0-32.0); Mean Corpuscular Volume 93.0 fL (80.0-100.0); Nucleated Red Blood Cells % 0.0 %
[2025-08-07 05:56] LABS: Alanine Aminotransferase 30 U/L (7-40); Albumin 3.9 g/dL (3.2-4.8); Alkaline Phosphatase 92 U/L (46-116); Anion Gap 6 (5-15); BUN/Creatinine Ratio 25.0 (10.0-20.0); Blood Urea Nitrogen 12 mg/dL (9-23); Calcium 9.2 mg/dL (8.7-10.4); Carbon Dioxide 29 mmol/L (20-31); Chloride 101 mmol/L (98-107); Glucose 97 mg/dL (74-106); Potassium 4.2 mmol/L (3.5-5.1); Sodium 136 mmol/L (136-145); Total Protein 7.1 g/dL (5.7-8.2)
[2025-08-07 05:57] LABS: Bilirubin, Total 0.4 mg/dL (0.2-1.0)
[2025-08-07] MEDS: PANTOPRAZOLE 40 MG TAB PO SCH (05:57)
[2025-08-07] MEDS ORDERED: LEVOTHYROXINE SODIUM 100 MCG TAB PO SCH (06:00)
[2025-08-07] MEDS: ONDANSETRON HCL 4 MG/2 ML VIAL IV PRN (08:11)
[2025-08-07] MEDS: ASPirin-EC 81 mg tab PO SCH (08:46)
[2025-08-07] MEDS: FUROSEMIDE 20 MG TAB PO SCH (08:48)
[2025-08-07] MEDS: MULTIPLE VITAMINS W/ MINERALS TAB PO SCH (10:29)
[2025-08-07] MEDS: OSELTAMIVIR 75 MG CAP PO SCH (10:29)
[2025-08-07] MEDS: AZITHROMYCIN 500MG/250ML 250 ML IV SCH (10:29)
--- NOTE | 2025-08-07 12:23 | DVHPN2 ---
Subjective He is on 7 L face mask oxygen now He says he feels better Blood pressure is high Changes from previous H/P or p: Changes Eyes: No Pain, No Vision change, No Conjunctivae inflammation, No Eyelid inflammation, No Other, No Redness ENT: No Ear pain, No Ear discharge, No Nose pain, No Nose discharge, No Nose congestion, No Mouth pain, No Mouth swelling, No Throat pain, No Throat swelling, No Other Cardiovascular: No Chest Pain, No Palpitations, No Orthopnea, No Paroxysmal Noc. Dyspnea, No Edema, No Lt Headedness, No Other Respiratory: Cough; No Dry; Shortness of breath, SOB with excertion, Wheezing; No Hemoptysis, No Pleuritic Pain; Sputum; No Other Gastrointestinal: No Nausea, No Vomiting, No Abdominal Pain, No Diarrhea, No Constipation, No Melena, No Hematochezia, No Other Genitourinary: No Dysuria, No Frequency, No Incontinence, No Hematuria, No Retention, No Other Musculoskeletal: No other, No neck pain, No shoulder pain, No arm pain, No back pain, No hand pain, No leg pain, No foot pain Skin: No Rash, No Lesions, No Jaundice, No Bruising, No Other Objective Vitals Vital Signs Date Time Temp Pulse Resp B/P (MAP) Pulse Ox O2 Delivery O2 Flow Rate FiO2 08/07/25 11:47 96 Nasal Cannula* 3 32 08/07/25 11:37 83 16 08/07/25 09:00 99.4 172/87 (115) 99.4 Intake/Output Intake and Output 08/07/25 07:00 Intake Total 1100 ml Output Total 3600 ml Balance -2500 ml Intake Oral 800 ml IV Total 300 ml Output Urine Total 3600 ml # Voids 1 General Appearance: Alert, Oriented X3, moderate distress Lungs: Other (Bilateral rhonchi) Cardiovascular: Regular rate, Normal S1, Normal S2 Abdomen: Normal bowel sounds, Soft, No tenderness Extremities: No edema Medications Current Medications Medications Dose Ordered Sig/Catal[place] Route Start Time Stop Time Status Last Admin Dose Admin Acetaminophen/ Hydrocodone Bitart 1 tab Q4HP PRN PO 08/06/25 12:30 Ondansetron HCl 4 mg Q4HP PRN IV 08/06/25 12:30 08/07/25 08:11 4 MG Docusate Sodium 100 mg BIDPRN PRN PO 08/06/25 12:30 Enoxaparin Sodium 30 mg DAILY SC 08/07/25 10:00 Acetaminophen 650 mg Q6HP PRN PO 08/06/25 12:30 Morphine Sulfate 2 mg Q4HPRN PRN IV 08/06/25 12:45 08/07/25 06:51 2 MG Nitroglycerin 0.4 mg Q5MINP PRN SL 08/06/25 12:30 Morphine Sulfate 2 mg Q30M PRN IV 08/06/25 12:45 Azithromycin 250 ml @ 125 mls/hr DAILY IV 08/07/25 10:00 08/07/25 10:29 125 MLS/HR Ceftriaxone Sodium 50 ml @ 100 mls/hr DAILY@09 IV 08/07/25 09:00 08/07/25 08:47 100 MLS/HR Albuterol 2.5 mg Q6HWA [facility] 08/06/25 18:00 08/07/25 11:28 2.5 MG Ipratropium [place] 0.5 mg Q6HWA [facility] 08/06/25 18:00 08/07/25 11:28 0.5 MG Methylprednisolone Sodium Succinate 40 mg BID IV 08/06/25 22:00 08/07/25 08:46 40 MG Alprazolam 0.5 mg BID PRN PO 08/06/25 13:30 Aspirin 81 mg DAILY PO 08/07/25 10:00 08/07/25 08:46 81 MG Furosemide 20 mg DAILY PO 08/07/25 10:00 08/07/25 08:48 20 MG Morphine Sulfate 15 mg Q6HR PRN PO 08/06/25 13:30 Hold Multivitamins/ Minerals 1 tab DAILY PO 08/07/25 10:00 08/07/25 10:29 1 TAB Pantoprazole Sodium 40 mg QAM PO 08/07/25 07:00 08/07/25 05:57 40 MG Primidone 50 mg TID PO 08/06/25 14:00 Sucralfate 1 gm TIDAC PO 08/06/25 17:00 08/07/25 05:57 1 GM Tamsulosin HCl 0.4 mg HS PO 08/06/25 22:00 08/06/25 21:18 0.4 MG Levothyroxine Sodium 300 mcg QAM@0600 PO 08/07/25 06:00 Hold Sertraline HCl 100 mg BID PO 08/06/25 22:00 08/07/25 08:47 100 MG Patient Own Medication 1 cap TID PRN PO 08/06/25 13:30 Oseltamivir Phosphate 75 mg Q12HR PO 08/07/25 10:00 08/12/25 09:59 08/07/25 10:29 75 MG Laboratory Results Laboratory Tests 08/07/25 04:50 Chemistry Test 08/07/25 04:50 Albumin 3.9 g/dL (3.2-4.8) Calcium Level 9.2 mg/dL (8.7-10.4) Total Protein 7.1 g/dL (5.7-8.2) LFT Test 08/07/25 04:50 Alanine Aminotransferase (ALT) 30 U/L (7-40) Alkaline Phosphatase 92 U/L (46-116) Aspartate Amino Transferase (AST) 31 U/L (13-40) Total Bilirubin 0.4 mg/dL (0.2-1.0) Urinalysis Test 08/06/25 10:28 Urine Color Light-yellow (Yellow) Urine Clarity Clear (Clear) Urine pH 7.0 (5.0-9.0) Urine Specific [place] 1.011 (1.001-1.035) Urine Protein Negative (Negative) Urine Ketones Negative (Negative) Urine Blood Negative /uL (Negative) Urine Nitrite Negative (Negative) Urine Bilirubin Negative (Negative) Urine Urobilinogen Normal mg/dL (Negative) Urine Leukocyte Esterase Negative /uL (Negative) Urine RBC 1 /hpf (0 - 3) Urine Microscopic WBC < 1 /HPF (0-3) Urine Squamous Epithelial Cells Few /hpf (<5) Urine Bacteria None seen /hpf (None Seen) Urine Glucose Normal mg/dL (Normal) Microbiology Microbiology Date/Time Source Procedure Growth Status 08/06/25 08:10 Blood Blood Culture - Preliminary NO GROWTH AFTER 24 HOURS OF INCUBATION. Resulted Assessment/Plan Assessment/Plan Acute hypoxic respiratory failure Viral pneumonia Influenza B Hypertension Congestive heart failure COPD Lung cancer Chronic anemia Plan IV antibiotics Zithromax and Rocephin Hydralazine p.r.n. Continue the home medications IV steroids Oxygen as needed Tamiflu DNI Plan discussed with: Patient My Orders Orders - MARIA ELENA ROMERO MD Procedure Category Date Status Time Oseltamivir 75mg PHA 08/07/25 In Process Capsule (Tamiflu 75mg 10:00 Hydralazine Injection PHA 08/07/25 Logged (Apresoline Inject 12:30 Date of Service: Aug 07, 2025 Billing Provider: MARIA ELENA ROMERO MD Common Visit Codes: NOT BILLABLE MARIA ELENA ROMERO MD Aug 07, 2025 12:23
[2025-08-07] MEDS: ENOXAPARIN SOD 30 MG/0.3 ML SYRINGE SC SCH (12:33)
[2025-08-07] MEDS: ACETAMINOPHEN 325 MG TAB PO PRN (18:36)
[2025-08-07] MEDS: hydrALAZINE HCL 20 MG/ML VL IV PRN (22:04)
[2025-08-08] VITALS (15 sets, daily range): BP systolic 131–159; BP diastolic 61–81; PULSE 79–100; RESP 16–22; TEMP 97.6–100.4; O2SAT 97–100
[2025-08-08] MEDS: HYDROcodone-ACET 5/325MG TAB PO PRN (04:21)
[2025-08-08 05:32] LABS: Hematocrit 37.3 % (41.0-53.0); Hemoglobin 12.7 g/dL (13.5-17.5); Mean Corpuscular Hemoglobin 31.8 pg (28.0-32.0); Mean Corpuscular Volume 93.3 fL (80.0-100.0); Nucleated Red Blood Cells % 0.0 %
[2025-08-08 05:52] LABS: Alanine Aminotransferase 37 U/L (7-40); Albumin 4.3 g/dL (3.2-4.8); Alkaline Phosphatase 104 U/L (46-116); Anion Gap 11 (5-15); BUN/Creatinine Ratio 21.2 (10.0-20.0); Bilirubin, Total 0.4 mg/dL (0.2-1.0); Blood Urea Nitrogen 11 mg/dL (9-23); Calcium 9.8 mg/dL (8.7-10.4); Carbon Dioxide 26 mmol/L (20-31); Glucose 102 mg/dL (74-106); Magnesium 2.1 mg/dL (1.6-2.6); Potassium 4.0 mmol/L (3.5-5.1); Total Protein 8.0 g/dL (5.7-8.2)
[2025-08-08] MEDS: LEVOTHYROXINE SODIUM 25 MCG TAB PO SCH (05:52)
[2025-08-08 05:57] LABS: Chloride 97 mmol/L (98-107); Sodium 134 mmol/L (136-145)
--- NOTE | 2025-08-08 11:35 | DVHPN2 ---
Subjective He is down to 4 L nasal cannula He is complaining of nausea and vomiting Changes from previous H/P or p: Changes Eyes: No Pain, No Vision change, No Conjunctivae inflammation, No Eyelid inflammation, No Other, No Redness ENT: No Ear pain, No Ear discharge, No Nose pain, No Nose discharge, No Nose congestion, No Mouth pain, No Mouth swelling, No Throat pain, No Throat swelling, No Other Cardiovascular: No Chest Pain, No Palpitations, No Orthopnea, No Paroxysmal Noc. Dyspnea, No Edema, No Lt Headedness, No Other Respiratory: Cough; No Dry; Shortness of breath, SOB with excertion, Wheezing; No Hemoptysis, No Pleuritic Pain; Sputum; No Other Gastrointestinal: No Nausea, No Vomiting, No Abdominal Pain, No Diarrhea, No Constipation, No Melena, No Hematochezia, No Other Genitourinary: No Dysuria, No Frequency, No Incontinence, No Hematuria, No Retention, No Other Musculoskeletal: No other, No neck pain, No shoulder pain, No arm pain, No back pain, No hand pain, No leg pain, No foot pain Skin: No Rash, No Lesions, No Jaundice, No Bruising, No Other Objective Vitals Vital Signs Date Time Temp Pulse Resp B/P (MAP) Pulse Ox O2 Delivery O2 Flow Rate FiO2 08/08/25 10:56 150/69 08/08/25 10:56 91 20 08/08/25 10:26 97 Nasal Cannula* 5 40 08/08/25 09:00 98.7 98.7 Intake/Output Intake and Output 08/08/25 07:00 Intake Total 1435 ml Output Total 2400 ml Balance -965 ml Intake Oral 1135 ml IV Total 300 ml Output Urine Total 2400 ml General Appearance: Alert, Oriented X3, moderate distress Lungs: Other (Bilateral rhonchi) Cardiovascular: Regular rate, Normal S1, Normal S2 Abdomen: Normal bowel sounds, Soft, No tenderness Extremities: No edema Medications Current Medications Medications Dose Ordered Sig/Catalina Route Start Time Stop Time Status Last Admin Dose Admin Acetaminophen/ Hydrocodone Bitart 1 tab Q4HP PRN PO 08/06/25 12:30 08/08/25 04:21 1 TAB Ondansetron HCl 4 mg Q4HP PRN IV 08/06/25 12:30 08/08/25 10:56 4 MG Docusate Sodium 100 mg BIDPRN PRN PO 08/06/25 12:30 Enoxaparin Sodium 30 mg DAILY SC 08/07/25 10:00 08/08/25 10:56 30 MG Acetaminophen 650 mg Q6HP PRN PO 08/06/25 12:30 08/07/25 18:36 650 MG Morphine Sulfate 2 mg Q4HPRN PRN IV 08/06/25 12:45 08/08/25 10:56 2 MG Nitroglycerin 0.4 mg Q5MINP PRN SL 08/06/25 12:30 Morphine Sulfate 2 mg Q30M PRN IV 08/06/25 12:45 Azithromycin 250 ml @ 125 mls/hr DAILY IV 08/07/25 10:00 08/08/25 10:56 125 MLS/HR Ceftriaxone Sodium 50 ml @ 100 mls/hr DAILY@09 IV 08/07/25 09:00 08/08/25 10:56 100 MLS/HR Albuterol 2.5 mg Q6HWA NEB 08/06/25 18:00 08/08/25 06:15 2.5 MG Ipratropium [place] 0.5 mg Q6HWA NEB 08/06/25 18:00 08/08/25 06:15 0.5 MG Methylprednisolone Sodium Succinate 40 mg BID IV 08/06/25 22:00 08/08/25 10:56 40 MG Alprazolam 0.5 mg BID PRN PO 08/06/25 13:30 Aspirin 81 mg DAILY PO 08/07/25 10:00 08/08/25 10:56 81 MG Furosemide 20 mg DAILY PO 08/07/25 10:00 08/08/25 10:56 20 MG Morphine Sulfate 15 mg Q6HR PRN PO 08/06/25 13:30 Hold Multivitamins/ Minerals 1 tab DAILY PO 08/07/25 10:00 08/08/25 10:56 1 TAB Pantoprazole Sodium 40 mg QAM PO 08/07/25 07:00 08/08/25 05:52 40 MG Primidone 50 mg TID PO 08/06/25 14:00 08/08/25 05:52 50 MG Sucralfate 1 gm TIDAC PO 08/06/25 17:00 08/08/25 11:08 1 GM Tamsulosin HCl 0.4 mg HS PO 08/06/25 22:00 08/07/25 22:05 0.4 MG Levothyroxine Sodium 300 mcg QAM@0600 PO 08/07/25 06:00 Hold Sertraline HCl 100 mg BID PO 08/06/25 22:00 08/08/25 10:56 100 MG Patient Own Medication 1 cap TID PRN PO 08/06/25 13:30 Oseltamivir Phosphate 75 mg Q12HR PO 08/07/25 10:00 08/12/25 09:59 08/08/25 10:56 75 MG Hydralazine HCl 10 mg Q6HP PRN IV 08/07/25 12:30 08/08/25 04:18 10 MG Levothyroxine Sodium 25 mcg QAM@0600 PO 08/08/25 06:00 08/08/25 05:52 25 MCG Laboratory Results Laboratory Tests 08/08/25 04:44 Chemistry Test 08/08/25 04:44 Albumin 4.3 g/dL (3.2-4.8) Calcium Level 9.8 mg/dL (8.7-10.4) Magnesium Level 2.1 mg/dL (1.6-2.6) Total Protein 8.0 g/dL (5.7-8.2) LFT Test 08/08/25 04:44 Alanine Aminotransferase (ALT) 37 U/L (7-40) Alkaline Phosphatase 104 U/L (46-116) Aspartate Amino Transferase (AST) 38 U/L (13-40) Total Bilirubin 0.4 mg/dL (0.2-1.0) Urinalysis Test 08/06/25 10:28 Urine Color Light-yellow (Yellow) Urine Clarity Clear (Clear) Urine pH 7.0 (5.0-9.0) Urine Specific [place] 1.011 (1.001-1.035) Urine Protein Negative (Negative) Urine Ketones Negative (Negative) Urine Blood Negative /uL (Negative) Urine Nitrite Negative (Negative) Urine Bilirubin Negative (Negative) Urine Urobilinogen Normal mg/dL (Negative) Urine Leukocyte Esterase Negative /uL (Negative) Urine RBC 1 /hpf (0 - 3) Urine Microscopic WBC < 1 /HPF (0-3) Urine Squamous Epithelial Cells Few /hpf (<5) Urine Bacteria None seen /hpf (None Seen) Urine Glucose Normal mg/dL (Normal) Microbiology Microbiology Date/Time Source Procedure Growth Status 08/07/25 03:00 Nose MRSA Screen - Final Complete 08/06/25 08:10 Blood Blood Culture - Preliminary NO GROWTH AFTER 48 HOURS OF INCUBATION. Resulted Assessment/Plan Assessment/Plan Acute hypoxic respiratory failure Viral pneumonia Influenza B Hypertension Congestive heart failure COPD Lung cancer Chronic anemia Plan IV antibiotics Zithromax and Rocephin Hydralazine p.r.n. Continue the home medications IV steroids Oxygen as needed Tamiflu DNI 08/08/2025: Nausea and vomiting: Add Reglan Continue IV antibiotics Continue Tamiflu Continue steroids Monitor closely Tapered down the oxygen as tolerated Plan discussed with: Patient My Orders Orders - MARIA ELENA ROMERO MD Procedure Category Date Status Time Hydralazine Injection PHA 08/07/25 In Process (Apresoline Inject 12:30 Levothyroxine Tablet PHA 08/08/25 In Process (Synthroid Tablet) 06:00 Date of Service: Aug 08, 2025 Billing Provider: MARIA ELENA ROMERO MD Common Visit Codes: NOT BILLABLE MARIA ELENA ROMERO MD Aug 08, 2025 11:35
[2025-08-08] MEDS: METOCLOPRAMIDE HCL 5MG/ml INJ 2ml VIAL IV SCH (13:32)
[2025-08-08] MEDS: DOCUSATE SOD 100 MG CAP PO PRN (17:12)
[2025-08-09] VITALS (16 sets, daily range): BP systolic 116–142; BP diastolic 62–80; PULSE 74–99; RESP 18–100; TEMP 97.5–98.3; O2SAT 90–100
[2025-08-09] MEDS: ALPRAZolam 0.5 MG TAB PO PRN (03:21)
--- NOTE | 2025-08-09 07:16 | ECG ---
[facility] Test Date: 2025-08-06 Test Time: 07:39:47 Pat Name: SHADIA HUNT Department: ED Room: 0236T A Gender: M Traffic Control Technician: mirna : 1955 Requested By: SYEDA JONES Order Number: [id number] Reading MD: Omid Norman Measurements Intervals [place] Rate: 86 P: 50 LA: 149 QRS: 13 QRSD: 120 T: 71 QT: 362 QTc: 433 Interpretive Statements Sinus rhythm Left ventricular hypertrophy Anterior ST elevation, probably due to LVH Electronically Signed On 08-10-2025 14:57:43 PST by Omid Norman Please click the below link to view image of tracing.
--- NOTE | 2025-08-09 10:44 | DVHPN2 ---
Subjective He is down to 5 L nasal cannula Nausea vomiting is better now Changes from previous H/P or p: Changes Eyes: No Pain, No Vision change, No Conjunctivae inflammation, No Eyelid inflammation, No Other, No Redness ENT: No Ear pain, No Ear discharge, No Nose pain, No Nose discharge, No Nose congestion, No Mouth pain, No Mouth swelling, No Throat pain, No Throat swelling, No Other Cardiovascular: No Chest Pain, No Palpitations, No Orthopnea, No Paroxysmal Noc. Dyspnea, No Edema, No Lt Headedness, No Other Respiratory: Cough; No Dry; Shortness of breath, SOB with excertion, Wheezing; No Hemoptysis, No Pleuritic Pain; Sputum; No Other Gastrointestinal: No Nausea, No Vomiting, No Abdominal Pain, No Diarrhea, No Constipation, No Melena, No Hematochezia, No Other Genitourinary: No Dysuria, No Frequency, No Incontinence, No Hematuria, No Retention, No Other Musculoskeletal: No other, No neck pain, No shoulder pain, No arm pain, No back pain, No hand pain, No leg pain, No foot pain Skin: No Rash, No Lesions, No Jaundice, No Bruising, No Other Objective Vitals Vital Signs Date Time Temp Pulse Resp B/P (MAP) Pulse Ox O2 Delivery O2 Flow Rate FiO2 08/09/25 09:56 113/65 08/09/25 09:19 78 21 08/09/25 09:00 97.6 100 97.6 08/08/25 20:00 Nasal Cannula* 3 32 Intake/Output Intake and Output 08/09/25 07:00 Intake Total 1775 ml Output Total 1425 ml Balance 350 ml Intake Oral 1475 ml IV Total 300 ml Output Urine Total 1425 ml # Voids 5 General Appearance: Alert, Oriented X3, moderate distress Lungs: Other (Bilateral rhonchi) Cardiovascular: Regular rate, Normal S1, Normal S2 Abdomen: Normal bowel sounds, Soft, No tenderness Extremities: No edema Medications Current Medications Medications Dose Ordered Sig/[place] Route Start Time Stop Time Status Last Admin Dose Admin Acetaminophen/ Hydrocodone Bitart 1 tab Q4HP PRN PO 08/06/25 12:30 08/08/25 04:21 1 TAB Ondansetron HCl 4 mg Q4HP PRN IV 08/06/25 12:30 08/08/25 10:56 4 MG Docusate Sodium 100 mg BIDPRN PRN PO 08/06/25 12:30 08/08/25 17:12 100 MG Enoxaparin Sodium 30 mg DAILY SC 08/07/25 10:00 08/09/25 09:57 30 MG Acetaminophen 650 mg Q6HP PRN PO 08/06/25 12:30 08/08/25 17:12 650 MG Morphine Sulfate 2 mg Q4HPRN PRN IV 08/06/25 12:45 08/09/25 08:49 2 MG Nitroglycerin 0.4 mg Q5MINP PRN SL 08/06/25 12:30 Morphine Sulfate 2 mg Q30M PRN IV 08/06/25 12:45 Azithromycin 250 ml @ 125 mls/hr DAILY IV 08/07/25 10:00 08/09/25 09:55 125 MLS/HR Ceftriaxone Sodium 50 ml @ 100 mls/hr DAILY@09 IV 08/07/25 09:00 08/09/25 08:48 100 MLS/HR Albuterol 2.5 mg Q6HWA NEB 08/06/25 18:00 08/09/25 05:56 2.5 MG Ipratropium [place] 0.5 mg Q6HWA NEB 08/06/25 18:00 08/09/25 05:56 0.5 MG Methylprednisolone Sodium Succinate 40 mg BID IV 08/06/25 22:00 08/09/25 09:53 40 MG Alprazolam 0.5 mg BID PRN PO 08/06/25 13:30 08/09/25 03:21 0.5 MG Aspirin 81 mg DAILY PO 08/07/25 10:00 08/09/25 09:56 81 MG Furosemide 20 mg DAILY PO 08/07/25 10:00 08/09/25 09:56 20 MG Morphine Sulfate 15 mg Q6HR PRN PO 08/06/25 13:30 Hold Multivitamins/ Minerals 1 tab DAILY PO 08/07/25 10:00 08/08/25 10:56 1 TAB Pantoprazole Sodium 40 mg QAM PO 08/07/25 07:00 08/09/25 06:16 40 MG Primidone 50 mg TID PO 08/06/25 14:00 08/09/25 06:16 50 MG Sucralfate 1 gm TIDAC PO 08/06/25 17:00 08/09/25 06:16 1 GM Tamsulosin HCl 0.4 mg HS PO 08/06/25 22:00 08/08/25 21:32 0.4 MG Levothyroxine Sodium 300 mcg QAM@0600 PO 08/07/25 06:00 Hold Sertraline HCl 100 mg BID PO 08/06/25 22:00 08/09/25 09:56 100 MG Patient Own Medication 1 cap TID PRN PO 08/06/25 13:30 Oseltamivir Phosphate 75 mg Q12HR PO 08/07/25 10:00 08/12/25 09:59 08/09/25 09:56 75 MG Hydralazine HCl 10 mg Q6HP PRN IV 08/07/25 12:30 08/08/25 04:18 10 MG Levothyroxine Sodium 25 mcg QAM@0600 PO 08/08/25 06:00 08/09/25 06:16 25 MCG Metoclopramide HCl 5 mg Q8HR IV 08/08/25 14:00 08/09/25 06:15 5 MG Laboratory Results Laboratory Tests 08/08/25 04:44 Urinalysis Test 08/06/25 10:28 Urine Color Light-yellow (Yellow) Urine Clarity Clear (Clear) Urine pH 7.0 (5.0-9.0) Urine Specific [place] 1.011 (1.001-1.035) Urine Protein Negative (Negative) Urine Ketones Negative (Negative) Urine Blood Negative /uL (Negative) Urine Nitrite Negative (Negative) Urine Bilirubin Negative (Negative) Urine Urobilinogen Normal mg/dL (Negative) Urine Leukocyte Esterase Negative /uL (Negative) Urine RBC 1 /hpf (0 - 3) Urine Microscopic WBC < 1 /HPF (0-3) Urine Squamous Epithelial Cells Few /hpf (<5) Urine Bacteria None seen /hpf (None Seen) Urine Glucose Normal mg/dL (Normal) Microbiology Microbiology Date/Time Source Procedure Growth Status 08/07/25 03:00 Nose MRSA Screen - Final Complete 08/06/25 08:10 Blood Blood Culture - Preliminary NO GROWTH AFTER 72 HOURS OF INCUBATION. Resulted Assessment/Plan Assessment/Plan Acute hypoxic respiratory failure Viral pneumonia Influenza B Hypertension Congestive heart failure COPD Lung cancer Chronic anemia Plan IV antibiotics Zithromax and Rocephin Hydralazine p.r.n. Continue the home medications IV steroids Oxygen as needed Tamiflu DNI 08/08/2025: Nausea and vomiting: Add Reglan Continue IV antibiotics Continue Tamiflu Continue steroids Monitor closely Tapered down the oxygen as tolerated 08/09/2025: Nausea and vomiting: Better Constipation: Give lactulose Physical therapy Continue IV antibiotics Tamiflu Steroids Monitor closely Tapered down the oxygen as tolerated Plan discussed with: Patient My Orders Orders - MARIA ELENA ROMERO MD Procedure Category Date Status Time Metoclopramide PHA 08/08/25 In Process Injection (Reglan 14:00 Date of Service: Aug 09, 2025 Billing Provider: MARIA ELENA ROMERO MD Common Visit Codes: NOT BILLABLE MARIA ELENA ROMERO MD Aug 09, 2025 10:44
[2025-08-09] MEDS: LACTULOSE 20Gm/30ML SOLN PO ONE (11:10)
[2025-08-09] MEDS: MELATONIN 5 MG TAB PO ONE (21:39)
[2025-08-10] VITALS (10 sets, daily range): BP systolic 121–134; BP diastolic 62–70; PULSE 74–90; RESP 16–100; TEMP 97.5–98; O2SAT 96–100
[2025-08-10] MEDS ORDERED: AZITTAB PO (13:33)
[2025-08-10] MEDS ORDERED: OSEL75CA5 PO (13:33)
[2025-08-10] MEDS ORDERED: METH4PAK PO (13:33)
--- NOTE | 2025-08-10 13:36 | DVHDS2 ---
Discharge Summary Date of Admission Aug 06, 2025 at 12:16 Date of Discharge: Aug 10, 2025 Labs/Diagnostic Data: Laboratory Results Test 08/08/25 04:44 08/07/25 04:50 08/06/25 10:57 08/06/25 10:28 White Blood Count 6.0 10^3/uL (4.4-10.8) Red Blood Count 4.00 10^6/uL (4.5-5.90) Hemoglobin 12.7 g/dL (13.5-17.5) Hematocrit 37.3 % (41.0-53.0) Mean Corpuscular Volume 93.3 fL (80.0-100.0) Mean Corpuscular Hemoglobin 31.8 pg (28.0-32.0) Mean Corpuscular Hemoglobin Concent 34.1 g/dL (32.0-36.0) Red Cell Distribution Width 13.6 % (11.8-14.3) Platelet Count 309 10^3/uL (140-450) Mean Platelet Volume 8.2 fL (6.9-10.8) Neutrophils (%) (Auto) 78.3 % (37.0-80.0) Lymphocytes (%) (Auto) 15.5 % (10.0-50.0) Monocytes (%) (Auto) 5.8 % (0.0-12.0) Eosinophils (%) (Auto) 0.2 % (0.0-7.0) Basophils (%) (Auto) 0.2 % (0.0-2.0) Neutrophils # (Auto) 4.7 10 ^3/uL (1.6-8.6) Lymphocytes # (Auto) 0.9 10 ^3/uL (0.4-5.4) Monocytes # (Auto) 0.3 10 ^3/uL (0-1.3) Eosinophils # (Auto) 0 10 ^3/uL (0-0.8) Basophils # (Auto) 0 10 ^3/uL (0-0.2) Nucleated Red Blood Cells 0.0 % Sodium Level 134 mmol/L (136-145) Potassium Level 4.0 mmol/L (3.5-5.1) Chloride Level 97 mmol/L (98-107) Carbon Dioxide Level 26 mmol/L (20-31) Anion Gap 11 (5-15) Blood Urea Nitrogen 11 mg/dL (9-23) Creatinine 0.52 mg/dL (0.700-1.30) Glomerular Filtration Rate Calc 108 mL/min (>90) BUN/Creatinine Ratio 21.2 (10.0-20.0) Serum Glucose 102 mg/dL (74-106) Calcium Level 9.8 mg/dL (8.7-10.4) Magnesium Level 2.1 mg/dL (1.6-2.6) Total Bilirubin 0.4 mg/dL (0.2-1.0) Aspartate Amino Transferase (AST) 38 U/L (13-40) Alanine Aminotransferase (ALT) 37 U/L (7-40) Alkaline Phosphatase 104 U/L (46-116) Total Protein 8.0 g/dL (5.7-8.2) Albumin 4.3 g/dL (3.2-4.8) Thyroid Stimulating Hormone (TSH) 1.31 uIU/mL (0.55-4.78) Troponin I High Sensitivity 31 ng/L (</=54) Urine Color Light-yellow (Yellow) Urine Clarity Clear (Clear) Urine pH 7.0 (5.0-9.0) Urine Specific [place] 1.011 (1.001-1.035) Urine Protein Negative (Negative) Urine Ketones Negative (Negative) Urine Blood Negative /uL (Negative) Urine Nitrite Negative (Negative) Urine Bilirubin Negative (Negative) Urine Urobilinogen Normal mg/dL (Negative) Urine Leukocyte Esterase Negative /uL (Negative) Urine RBC 1 /hpf (0 - 3) Urine Microscopic WBC < 1 /HPF (0-3) Urine Squamous Epithelial Cells Few /hpf (<5) Urine Bacteria None seen /hpf (None Seen) Urine Glucose Normal mg/dL (Normal) Test 08/06/25 08:45 08/06/25 08:44 08/06/25 08:00 SARS-CoV-2 Antigen (Rapid) Negative (NEGATIVE) Influenza Type A Antigen Negative (Negative) Influenza Type B Antigen Positive (Negative) Lactic Acid Level 1.4 mmol/L (0.4-2.0) B-Type Natriuretic Peptide 198.69 pg/mL (0-100) Other Laboratory Tests 08/08/25 04:44 Brief Hx & Hospital Course: Final diagnoses: Acute hypoxic respiratory failure Viral pneumonia Influenza B Hypertension Congestive heart failure COPD Lung cancer Chronic anemia 69-year-old male with lung cancer and chronic respiratory failure on home O2 came with cough and upper respiratory infection and was diagnosed with influenza B He was given oxygen med neb treatments and IV steroids and IV antibiotics He was also given Tamiflu Today he is doing better He is stable He is on oxygen but he has home O2 already at home and he is at baseline Discharged home on Zithromax and Tamiflu for 3 days and tapered dose prednisone and resume other home medications and follow up with his primary care physician as soon as possible Condition at Discharge: Stable Final Diagnosis/Problems List Acute hypoxic respiratory failure Viral pneumonia Influenza B Hypertension Congestive heart failure COPD Lung cancer Chronic anemia Discharge Disposition: Home SNF Discharge Will this Physician continue t: No Discharge Instruct/Medications Diet: Cardiac 2g Na,low cholest Activity: No Restrictions, As Tolerated Follow Up/Referral: PCP MADONNA Medications: Zithromax 250 mg daily for 3 days Medrol Dosepak Tamiflu 75 mg twice a day for 3 days Resume other home medications Scheduled Aripiprazole (Aripiprazole), 1 TAB PO DAILY, (Reported) Aspirin (Aspir-81), 1 TAB PO DAILY Atorvastatin Calcium (Atorvastatin Calcium), 1 TAB PO HS, (Reported) Azithromycin (Zithromax Z-Aleksandr), 250 MG PO DAILY Budesonide (Inhalation) (Budesonide), 1 VIAL NEB BID, (Reported) Bupropion Hcl (Bupropion Hcl), 100 MG PO QID, (Reported) Docusate Sodium (Colace), 1 CAP PO DAILY, (Reported) Ferrous Sulfate (Iron Supplement), 1 TAB PO TIDWM, (Reported) Finasteride (Finasteride), 1 TAB PO DAILY, (Reported) Fluticasone Propionate (Flonase [place]), 2 SPRAYS NA DAILY, (Reported) Formoterol Fumarate Dihydrate (Formoterol Fumarate), 2 ML NEB DAILY, (Reported) Furosemide (Lasix), 1 TAB PO DAILY Levothyroxine Sodium (Levothyroxine Sodium), 1 TAB PO DAILY, (Reported) Levothyroxine Sodium (Levothyroxine Sodium), 1 TAB PO DAILY, (Reported) Loratadine (Loratadine), 10 MG PO DAILYPRN, (Reported) Methylprednisolone (Medrol Dosepak), 4 MG PO UD Midodrine HCl (Midodrine Hydrochloride), 5 MG PO TID, (Reported) Montelukast Sodium (Montelukast Sodium), 1 TAB PO DAILY, (Reported) Multiple Vitamins W/ Minerals (Centrum Silver), 1 TAB PO DAILY, (Reported) Oseltamivir Phosphate (Tamiflu), 1 CAP PO BID Pantoprazole Sodium Sesquihydr (Protonix), 1 TAB PO QAM, (Reported) Prednisone (Prednisone), 40 MG PO DAILY Primidone (Mysoline Tablet), 1 TAB PO TID, (Reported) Primidone (Primidone), 250 MG PO TID, (Reported) Sertraline Hcl (Sertraline Hcl), 1 TAB PO BID, (Reported) Sucralfate (Carafate), 1 TAB PO TID, (Reported) Tamsulosin Hcl (Flomax), 1 CAP PO HS, (Reported) Tiotropium [place] Monohydrate (Spiriva Handihaler), 1 CAP INH DAILY, (Reported) Scheduled PRN Albuterol Sulfate (Ventolin Mdi), 2 PUFF IN Q6HR PRN for SHORTNESS OF BREATH, (Reported) Albuterol Sulfate (Albuterol Sulfate), 1 UNIT NEB Q4HR PRN for SHORTNESS OF BREATH, (Reported) Alprazolam (Alprazolam), 1 TAB PO BID PRN for ANXIETY, (Reported) Clonidine Hydrochloride (Clonidine Hcl), 0.1 MG PO DAILYP PRN for SBP>160, (Reported) Lactulose (Lactulose), 10 GM PO DAILY PRN for FOR CONSTIPATION, (Reported) Morphine Sulfate (Morphine Sulfate Cr), 1 TAB PO Q6HR PRN for PAIN SCALE 7 THRU 10, (Reported) Morphine Sulfate (Morphine Sulfate Er), 15 MG PO BIDP PRN for PAIN SCALE 7 THRU 10, (Reported) Tizanidine Hydrochloride (Zanaflex), 1 CAP PO TID PRN for MUSCLE SPASMS, (Reported) Discontinued Medications Atorvastatin Calcium (Lipitor), 1 TAB PO HS, (Reported) Bupropion Hcl (Bupropion Hcl Sr), 1 TAB PO BID, (Reported) Doxycycline Monohydrate (Doxycycline Monohydrate), 1 CAP PO BID Midodrine Hcl (Midodrine Hcl), 1 TAB PO DAILY, (Reported) Discharge Statement: "Patient was advised to return to the ER or call 911 if any headaches, dizziness, shortness of breath, chest pain, abdominal pain, bleeding, fevers, or worsening of medical condition. Patient was counseled about treatment plan, medications, possible side effects, patientverbalized understanding. All questions were answered to the best of my ability. This discharge took greater then 30 minutes in planning, reviewing documentation, counseling the patient, and discussing with other team members." ASSESSMENT ASSESSMENT Assessment Acute hypoxic respiratory failure Viral pneumonia Influenza B Hypertension Congestive heart failure COPD Lung cancer Chronic anemia Date of Service: Aug 10, 2025 Billing Provider: MARIA ELENA ROMERO MD Common Visit Codes: NOT BILLABLE MARIA ELENA ROMERO MD Aug 10, 2025 13:36
[2025-08-11] MEDS ORDERED: ZOFR4T PO (19:22)
== END 2025-08-10 16:04 | disposition home health service (06) | DRG 193 ==
LOC: ER 07:34 → EDBD 07:34 → OVERFLOW 12:16 → TELE-EAST 14:54
PROVIDERS: ADMIT Internal Medicine Geriatric Medicine; ATTEND Internal Medicine Geriatric Medicine
DX: J12.9 Viral pneumonia, unspecified (principal); J96.21 Acute and chronic respiratory failure with hypoxia; I50.32 Chronic diastolic (congestive) heart failure; Z99.81 Dependence on supplemental oxygen; J44.0 Chronic obstructive pulmonary disease with (acute) lower respiratory infection; J10.08 Influenza due to other identified influenza virus with other specified pneumonia; I11.0 Hypertensive heart disease with heart failure; D64.9 Anemia, unspecified; E03.9 Hypothyroidism, unspecified; J44.1 Chronic obstructive pulmonary disease with (acute) exacerbation; F41.9 Anxiety disorder, unspecified; K21.9 Gastro-esophageal reflux disease without esophagitis; M10.9 Gout, unspecified; Z79.82 Long term (current) use of aspirin; Z79.899 Other long term (current) drug therapy; Z90.49 Acquired absence of other specified parts of digestive tract; Z96.642 Presence of left artificial hip joint; Z85.118 Personal history of other malignant neoplasm of bronchus and lung; Z87.891 Personal history of nicotine dependence
CPT/HCPCS: 36415; 71045; 80048; 80053; 81001; 83605; 83735; 83880; 84443; 84484; 85025; 87040; 87077; 87081; 87186; 87426; 87804; 93005; 94640; 96365; 97163; 99291; 99292; G0378; J2405